=== PATIENT | male | born 1950 | race Native Hawaiian/Other Pacific Islander ===

== ENCOUNTER 2017-07-07 10:52 | Outpatient (CLI) | payer OTHER ==
[2017-07-07 11:44] LABS: PLATELET COUNT 249 K/uL (142-355)
[2017-07-07 12:30] LABS: POTASSIUM 4.2 mmol/L (3.6-5.2)
== END 2017-07-07 18:00 ==
LOC: LAB 10:52
PROVIDERS: Internal Medicine
DX: E11.9 Type 2 diabetes mellitus without complications (principal); Z12.5 Encounter for screening for malignant neoplasm of prostate
CPT/HCPCS: 36415; 80053; 80061; 81000; 82043; 82570; 83036; 84153; 84443; 85027

== ENCOUNTER 2017-07-09 15:33 | Outpatient (CLI) | payer OTHER | END 2017-07-09 22:58 | disposition home or self-care (01) | LOC: LABW 15:33 | DX: Z79.899 Other long term (current) drug therapy (principal); Z51.81 Encounter for therapeutic drug level monitoring | CPT/HCPCS: 36415; 84443 ==

== ENCOUNTER 2017-07-30 07:20 | Outpatient (CLI) | payer OTHER ==
[~2017-07-30] VITALS: Ht 177.8 cm; Wt 142.9 kg
== END 2017-07-30 19:23 | disposition home or self-care (01) ==
LOC: NM 07:20
DX: R07.89 Other chest pain (principal); I25.89 Other forms of chronic ischemic heart disease
CPT/HCPCS: 93306; A9500; J2785

== ENCOUNTER 2017-08-14 09:44 | Outpatient (CLI) | payer OTHER ==
[2017-08-14 10:11] LABS: PLATELET COUNT 304 K/uL (142-355)
== END 2017-08-14 19:15 | disposition home or self-care (01) ==
LOC: LABW 09:44
PROVIDERS: Internal Medicine
DX: N18.3 Chronic kidney disease, stage 3 (moderate) (principal); R73.09 Other abnormal glucose; R79.89 Other specified abnormal findings of blood chemistry; Z79.899 Other long term (current) drug therapy
CPT/HCPCS: 36415; 80053; 81000; 82043; 82306; 82330; 82550; 82570; 82607; 83036; 83540; 83550; 83735; 83970; 84100; 84155; 84165; 84166; 84439; 84443; 84550; 85027

== ENCOUNTER → 2017-11-27 14:35 | Outpatient (CLI) | payer OTHER | END | disposition home or self-care (01) | LOC: AMB 14:35 | DX: Z04.8 Encounter for examination and observation for other specified reasons (principal); S50.312A Abrasion of left elbow, initial encounter; W18.39XA Other fall on same level, initial encounter; Y92.511 Restaurant or cafe as the place of occurrence of the external cause ==

== ENCOUNTER 2018-04-01 08:35 | Outpatient (CLI) | payer OTHER ==
[2018-04-01 08:53] LABS: POTASSIUM 4.5 mmol/L (3.6-5.2)
== END 2018-04-01 23:23 | disposition home or self-care (01) ==
LOC: LABW 08:35
PROVIDERS: Internal Medicine Cardiovascular Disease
DX: E11.9 Type 2 diabetes mellitus without complications (principal)
CPT/HCPCS: 36415; 80048

== ENCOUNTER 2018-05-20 08:17 | Outpatient (CLI) | payer OTHER ==
[2018-05-20 08:35] LABS: PLATELET COUNT 263 K/uL (142-355)
[2018-05-20 08:51] LABS: POTASSIUM 4.6 mmol/L (3.6-5.2)
== END 2018-05-20 23:15 | disposition home or self-care (01) ==
LOC: LABW 08:17
PROVIDERS: Internal Medicine Cardiovascular Disease
DX: E11.9 Type 2 diabetes mellitus without complications (principal); E78.89 Other lipoprotein metabolism disorders; I25.10 Atherosclerotic heart disease of native coronary artery without angina pectoris
CPT/HCPCS: 36415; 80053; 80061; 82550; 83036; 84439; 84443; 85027

== ENCOUNTER 2018-09-02 09:51 | Outpatient (CLI) | payer OTHER ==
[2018-09-02 10:15] LABS: PLATELET COUNT 271 K/uL (142-355)
[2018-09-02 10:29] LABS: POTASSIUM 4.4 mmol/L (3.6-5.2)
== END 2018-09-02 19:13 | disposition home or self-care (01) ==
LOC: LABW 09:51
PROVIDERS: Internal Medicine Cardiovascular Disease
DX: E11.9 Type 2 diabetes mellitus without complications (principal); E78.89 Other lipoprotein metabolism disorders; M81.0 Age-related osteoporosis without current pathological fracture; I25.10 Atherosclerotic heart disease of native coronary artery without angina pectoris
CPT/HCPCS: 36415; 80053; 80061; 82306; 82550; 83036; 84439; 84443; 85027

== ENCOUNTER 2018-12-02 08:12 | Outpatient (CLI) | payer OTHER ==
[2018-12-02 08:34] LABS: PLATELET COUNT 262 K/uL (142-355)
[2018-12-02 08:57] LABS: POTASSIUM 4.3 mmol/L (3.6-5.2)
== END 2018-12-02 08:30 | disposition home or self-care (01) ==
LOC: LABW 08:12
PROVIDERS: Internal Medicine Cardiovascular Disease
DX: E11.9 Type 2 diabetes mellitus without complications (principal); I25.10 Atherosclerotic heart disease of native coronary artery without angina pectoris; I49.8 Other specified cardiac arrhythmias; Z79.899 Other long term (current) drug therapy
CPT/HCPCS: 36415; 80053; 80061; 82550; 83036; 83735; 84439; 84443; 85027

== ENCOUNTER 2019-03-07 08:40 | Outpatient (CLI) | payer OTHER ==
[2019-03-07 09:20] LABS: POTASSIUM 4.4 mmol/L (3.6-5.2)
[2019-03-07 09:49] LABS: PLATELET COUNT 279 K/uL (142-355)
== END 2019-03-07 21:13 | disposition home or self-care (01) ==
LOC: LABW 08:40
PROVIDERS: Internal Medicine Cardiovascular Disease
DX: E11.9 Type 2 diabetes mellitus without complications (principal); E78.89 Other lipoprotein metabolism disorders
CPT/HCPCS: 36415; 80053; 80061; 82550; 84439; 84443; 85027

== ENCOUNTER 2019-07-11 09:18 | Outpatient (CLI) | payer OTHER ==
[2019-07-11 09:35] LABS: PLATELET COUNT 249 K/uL (142-355)
[2019-07-11 09:53] LABS: POTASSIUM 4.1 mmol/L (3.6-5.2)
== END 2019-07-11 20:48 | disposition home or self-care (01) ==
LOC: LABW 09:18
PROVIDERS: Internal Medicine Cardiovascular Disease
DX: E11.9 Type 2 diabetes mellitus without complications (principal); E78.89 Other lipoprotein metabolism disorders
CPT/HCPCS: 36415; 80053; 80061; 82550; 83036; 83735; 84439; 84443; 85027

== ENCOUNTER 2019-08-04 08:27 | Outpatient (CLI) | payer OTHER ==
[2019-08-04 08:45] LABS: POTASSIUM 4.4 mmol/L (3.6-5.2)
[2019-08-04 09:16] LABS: PLATELET COUNT 247 K/uL (142-355)
== END 2019-08-04 19:10 | disposition home or self-care (01) ==
LOC: LABW 08:27
PROVIDERS: Internal Medicine Cardiovascular Disease
DX: I25.10 Atherosclerotic heart disease of native coronary artery without angina pectoris (principal); D63.8 Anemia in other chronic diseases classified elsewhere; E11.9 Type 2 diabetes mellitus without complications; I10 Essential (primary) hypertension; E78.89 Other lipoprotein metabolism disorders
CPT/HCPCS: 36415; 80048; 85027

== ENCOUNTER 2019-09-28 09:06 | Outpatient (CLI) | payer OTHER ==
[2019-09-28 09:54] LABS: PLATELET COUNT 239 K/uL (142-355)
[2019-09-29] MEDS ORDERED: CARV6.25 PO (18:03)
[2019-09-29] MEDS ORDERED: PACERONE200 MG PO (18:06)
[2019-09-29] MEDS ORDERED: ASPIRIN81 M2 PO (18:07)
[2019-09-29] MEDS ORDERED: ALTACE5 MG PO (18:08)
[2019-09-29] MEDS ORDERED: FURO40TA93 PO (18:08)
[2019-09-29] MEDS ORDERED: LIPITOR80 MG PO (18:09)
[2019-09-29] MEDS ORDERED: VASCEPA1 GM PO (18:11)
[2019-09-29] MEDS ORDERED: K-TAB20 MEQ PO (18:14)
[2019-09-29] MEDS ORDERED: CARB25TA29 PO (18:17)
== END 2019-09-28 19:15 | disposition home or self-care (01) ==
LOC: LABW 09:06
PROVIDERS: Specialist
DX: D64.89 Other specified anemias (principal)
CPT/HCPCS: 36415; 85027

== ENCOUNTER 2019-09-29 12:30 | Observation (INO) | payer OTHER ==
[2019-09-29] VITALS (13 sets, daily range): BP systolic 105–136; BP diastolic 40–86; TEMP 98.1–99
[~2019-09-29] VITALS: Ht 177.8 cm; Wt 148.1 kg
[2019-09-29 13:48] LABS: PLATELET COUNT 225 K/uL (142-355)
[2019-09-29 13:53] LABS: POTASSIUM 4.6 mmol/L (3.6-5.2)
[2019-09-29] MEDS ORDERED: CARV6.25 PO (18:03)
[2019-09-29] MEDS ORDERED: PACERONE200 MG PO (18:06)
[2019-09-29] MEDS ORDERED: ASPIRIN81 M2 PO (18:07)
[2019-09-29] MEDS ORDERED: FURO40TA93 PO (18:08)
[2019-09-29] MEDS ORDERED: ALTACE5 MG PO (18:08)
[2019-09-29] MEDS ORDERED: LIPITOR80 MG PO (18:09)
[2019-09-29] MEDS ORDERED: VASCEPA1 GM PO (18:11)
[2019-09-29] MEDS ORDERED: K-TAB20 MEQ PO (18:14)
[2019-09-29] MEDS ORDERED: CARB25TA29 PO (18:17)
[2019-09-30] VITALS (18 sets, daily range): BP systolic 11–136; BP diastolic 44–64; TEMP 98.1–99; Ht 177.8 cm; Wt 148.1 kg
[2019-09-30 06:32] LABS: PLATELET COUNT 206 K/uL (142-355)
== END 2019-10-01 00:11 | disposition home or self-care (01) ==
LOC: ED 12:30 → MED/SURG 14:41
PROVIDERS: Internal Medicine
PROC: 30233N1 Transfusion of Nonautologous Red Blood Cells into Peripheral Vein, Percutaneous Approach (ICD-10-PCS; principal; 2019-09-29)
PROC: 30233N1 Transfusion of Nonautologous Red Blood Cells into Peripheral Vein, Percutaneous Approach (ICD-10-PCS; 2019-09-30)
DX: D46.Z Other myelodysplastic syndromes (principal); E78.49 Other hyperlipidemia; I10 Essential (primary) hypertension; E11.9 Type 2 diabetes mellitus without complications; G24.3 Spasmodic torticollis; Z95.1 Presence of aortocoronary bypass graft
CPT/HCPCS: 80053; 85014; 85018; 85027; 86850; 86900; 86901; 86922; 93005; 99220; 99283; G0378; P9016

== ENCOUNTER 2019-10-05 10:44 | Outpatient (CLI) | payer OTHER ==
[~2019-10-05 10:44] MED LIST: ALTACE5 MG PO; ASPIRIN81 M2 PO; CARB25TA29 PO; CARV6.25 PO; FURO40TA93 PO; K-TAB20 MEQ PO; LIPITOR80 MG PO; PACERONE200 MG PO; VASCEPA1 GM PO
[2019-10-05 10:53] LABS: PLATELET COUNT 203 K/uL (142-355)
== END 2019-10-05 21:46 | disposition home or self-care (01) ==
LOC: LABW 10:44
PROVIDERS: Specialist
DX: D64.89 Other specified anemias (principal)
CPT/HCPCS: 36415; 85027

== ENCOUNTER 2019-10-12 10:38 | Outpatient (CLI) | payer OTHER ==
[2019-10-12 10:52] LABS: PLATELET COUNT 180 K/uL (142-355)
== END 2019-10-12 19:48 | disposition home or self-care (01) ==
LOC: LABW 10:38
PROVIDERS: Specialist
DX: D64.89 Other specified anemias (principal)
CPT/HCPCS: 36415; 85027

== ENCOUNTER 2019-10-17 10:22 | Outpatient (CLI) | payer OTHER ==
[2019-10-17 10:36] LABS: PLATELET COUNT 206 K/uL (142-355)
[2019-10-17 11:00] LABS: POTASSIUM 4.4 mmol/L (3.6-5.2)
== END 2019-10-17 21:09 | disposition home or self-care (01) ==
LOC: LABW 10:22
PROVIDERS: Internal Medicine Cardiovascular Disease
DX: E11.9 Type 2 diabetes mellitus without complications (principal); I10 Essential (primary) hypertension; D63.8 Anemia in other chronic diseases classified elsewhere; I49.8 Other specified cardiac arrhythmias
CPT/HCPCS: 36415; 80053; 80061; 82550; 83036; 84439; 84443; 85027

== ENCOUNTER 2019-10-19 10:50 | Outpatient (CLI) | payer OTHER ==
[2019-10-19 11:08] LABS: PLATELET COUNT 231 K/uL (142-355)
== END 2019-10-19 22:05 | disposition home or self-care (01) ==
LOC: LABW 10:50
PROVIDERS: Specialist
DX: D64.89 Other specified anemias (principal)
CPT/HCPCS: 36415; 85027

== ENCOUNTER 2019-10-26 11:15 | Outpatient (CLI) | payer OTHER ==
[2019-10-26 12:27] LABS: PLATELET COUNT 259 K/uL (142-355)
== END 2019-10-26 21:32 | disposition home or self-care (01) ==
LOC: LABW 11:15
PROVIDERS: Specialist
DX: D64.89 Other specified anemias (principal)
CPT/HCPCS: 36415; 85027

== ENCOUNTER 2019-10-28 09:33 | Observation (INO) | payer OTHER ==
[2019-10-28] VITALS (14 sets, daily range): BP systolic 102–127; BP diastolic 38–62; TEMP 97.1–98.7; Ht 177.8 cm; Wt 147.0 kg
[~2019-10-28] VITALS: Ht 177.8 cm; Wt 147.0 kg
[2019-10-28 10:14] LABS: PLATELET COUNT 233 K/uL (142-355)
[2019-10-28 10:22] LABS: POTASSIUM 4.3 mmol/L (3.6-5.2)
--- NOTE | 2019-10-28 12:45 | NUR ---
Pt. ADMITTED TO ROOM 1109 FOR INFUSION OF 2 UNITS POF PRBC. SKIN COLOR PALE. HGB 6.6.
--- NOTE | 2019-10-28 18:25 | NUR ---
FIRST UNIT OF BLOOD COMPLETED.
--- NOTE | 2019-10-28 23:42 | NUR ---
10/28/2019 @ 2210 SECOND UNIT OF PRBCS INFUSED WITHOUT DIFFICULTY. PATIENT TOLERATED WELL AND DENIES ANY COMPLAINTS AT THIS TIME.
== END 2019-10-28 23:36 | disposition home or self-care (01) ==
LOC: ED 09:33 → MED/SURG 12:00
PROVIDERS: ADMIT Family Medicine
PROC: 30233N1 Transfusion of Nonautologous Red Blood Cells into Peripheral Vein, Percutaneous Approach (ICD-10-PCS; principal; 2019-10-28)
DX: D46.4 Refractory anemia, unspecified (principal); I10 Essential (primary) hypertension; E11.9 Type 2 diabetes mellitus without complications; G24.3 Spasmodic torticollis; E78.49 Other hyperlipidemia; I25.10 Atherosclerotic heart disease of native coronary artery without angina pectoris; I48.91 Unspecified atrial fibrillation
CPT/HCPCS: 80053; 85027; 86850; 86900; 86901; 86922; 99220; 99283; G0378; P9016

== ENCOUNTER 2019-11-02 10:04 | Outpatient (CLI) | payer OTHER ==
[2019-11-02 12:51] LABS: PLATELET COUNT 227 K/uL (142-355)
== END 2019-11-02 20:23 | disposition home or self-care (01) ==
LOC: LAB 10:04
PROVIDERS: Specialist
DX: D64.89 Other specified anemias (principal)
CPT/HCPCS: 36415; 85027

== ENCOUNTER 2019-11-09 08:42 | Outpatient (CLI) | payer OTHER ==
[2019-11-09 10:06] LABS: PLATELET COUNT 185 K/uL (142-355)
== END 2019-11-09 19:01 | disposition home or self-care (01) ==
LOC: LABW 08:42
PROVIDERS: Specialist
DX: D64.89 Other specified anemias (principal)
CPT/HCPCS: 36415; 85027

== ENCOUNTER 2019-11-15 07:43 | Outpatient (CLI) | payer OTHER ==
[~2019-11-15] VITALS: Ht 179.1 cm; Wt 148.4 kg
[2019-11-15 08:15] VITALS: BP 119/53; TEMP 98.7
--- NOTE | 2019-11-15 17:50 | NUR ---
CHANELL FERNANDEZ RN, D/C'D PATIENT'S IV TO RIGHT HAND AND APPLIED 2X2 PRESSURE DRESSING, NO ACTIVE BLEEDING NOTED AT THIS TIME. PATIENT D/C'D FROM INFUSION CENTER AND AMBULATED FROM SAME WITHOUT DIFFICULTY AND GAIT IS STEADY. NO S/SX OF DISTRESS NOTED WITH PATIENT.
== END 2019-11-15 17:50 | disposition home or self-care (01) ==
LOC: INF 07:43
PROC: 30233N1 Transfusion of Nonautologous Red Blood Cells into Peripheral Vein, Percutaneous Approach (ICD-10-PCS; principal; 2019-11-15)
DX: D63.1 Anemia in chronic kidney disease (principal)
CPT/HCPCS: 36430; 36591; 85014; 85018; 86850; 86900; 86901; 86922; 96374; 96376; J1940; P9016

== ENCOUNTER 2019-11-16 10:24 | Outpatient (CLI) | payer OTHER ==
[2019-11-16 10:38] LABS: PLATELET COUNT 214 K/uL (142-355)
== END 2019-11-16 19:50 | disposition home or self-care (01) ==
LOC: LABW 10:24
PROVIDERS: Specialist
DX: D64.89 Other specified anemias (principal)
CPT/HCPCS: 85027

== ENCOUNTER 2019-11-23 09:10 | Outpatient (CLI) | payer OTHER ==
[2019-11-23 09:37] LABS: POTASSIUM 4.3 mmol/L (3.6-5.2)
[2019-11-23 09:47] LABS: PLATELET COUNT 245 K/uL (142-355)
== END 2019-11-23 19:43 | disposition home or self-care (01) ==
LOC: LABW 09:10
PROVIDERS: Specialist
DX: E11.9 Type 2 diabetes mellitus without complications (principal); E78.89 Other lipoprotein metabolism disorders; D63.8 Anemia in other chronic diseases classified elsewhere; I25.10 Atherosclerotic heart disease of native coronary artery without angina pectoris; D64.89 Other specified anemias
CPT/HCPCS: 36415; 80053; 80061; 82550; 83036; 84439; 84443; 85027

== ENCOUNTER 2019-11-30 09:45 | Outpatient (CLI) | payer OTHER ==
[2019-11-30 10:20] LABS: PLATELET COUNT 219 K/uL (142-355)
== END 2019-11-30 20:29 | disposition home or self-care (01) ==
LOC: LABW 09:45
PROVIDERS: Specialist
DX: D64.89 Other specified anemias (principal)
CPT/HCPCS: 36415; 85027

== ENCOUNTER 2019-12-02 07:33 | Outpatient (CLI) | payer OTHER ==
[~2019-12-02] VITALS: Ht 172.7 cm; Wt 148.3 kg
[2019-12-02 07:55] VITALS: BP 142/51; TEMP 97.8
== END 2019-12-02 16:45 | disposition home or self-care (01) ==
LOC: INF 07:33
PROC: 30233N1 Transfusion of Nonautologous Red Blood Cells into Peripheral Vein, Percutaneous Approach (ICD-10-PCS; principal; 2019-12-02)
DX: D64.9 Anemia, unspecified (principal)
CPT/HCPCS: 36430; 36591; 85014; 85018; 86850; 86900; 86901; 86922; 96374; 96375; 96376; J1940; P9016

== ENCOUNTER 2019-12-07 10:06 | Outpatient (CLI) | payer OTHER ==
[2019-12-07 10:24] LABS: PLATELET COUNT 183 K/uL (142-355)
== END 2019-12-07 21:28 | disposition home or self-care (01) ==
LOC: LABW 10:06
PROVIDERS: Specialist
DX: D64.89 Other specified anemias (principal)
CPT/HCPCS: 36415; 85027

== ENCOUNTER 2019-12-14 07:33 | Outpatient (CLI) | payer OTHER ==
[~2019-12-14] VITALS: Ht 179.1 cm; Wt 144.3 kg
[2019-12-14 07:55] VITALS: BP 123/88; TEMP 98
== END 2019-12-14 16:38 | disposition home or self-care (01) ==
LOC: INF 07:33
PROC: 30233P1 Transfusion of Nonautologous Frozen Red Cells into Peripheral Vein, Percutaneous Approach (ICD-10-PCS; principal; 2019-12-14)
DX: N18.3 Chronic kidney disease, stage 3 (moderate) (principal); D63.1 Anemia in chronic kidney disease; D53.9 Nutritional anemia, unspecified
CPT/HCPCS: 36415; 36430; 85014; 85018; 86850; 86900; 86901; 86922; P9016

== ENCOUNTER 2019-12-27 14:47 | Outpatient (CLI) | payer OTHER ==
[2019-12-27 15:19] LABS: PLATELET COUNT 210 K/uL (142-355)
[2019-12-27 16:15] LABS: POTASSIUM 4.5 mmol/L (3.6-5.2)
== END 2019-12-27 19:16 | disposition home or self-care (01) ==
LOC: LABW 14:47
PROVIDERS: Internal Medicine
DX: N18.3 Chronic kidney disease, stage 3 (moderate) (principal); D63.1 Anemia in chronic kidney disease; E53.8 Deficiency of other specified B group vitamins
CPT/HCPCS: 36415; 80053; 81000; 82306; 82330; 82570; 82607; 82728; 82746; 83540; 83550; 83735; 83970; 84100; 84155; 85027

== ENCOUNTER 2019-12-29 08:29 | Outpatient (CLI) | payer OTHER ==
[~2019-12-29] VITALS: Ht 177.8 cm; Wt 141.5 kg
[2019-12-29 09:10] VITALS: BP 110/53; TEMP 98.2
== END 2019-12-29 15:00 | disposition home or self-care (01) ==
LOC: INF 08:29
PROC: 30233P1 Transfusion of Nonautologous Frozen Red Cells into Peripheral Vein, Percutaneous Approach (ICD-10-PCS; principal; 2019-12-29)
DX: D63.1 Anemia in chronic kidney disease (principal)
CPT/HCPCS: 36430; 36591; 86850; 86900; 86901; 86922; P9016

== ENCOUNTER 2020-01-13 07:50 | Outpatient (CLI) | payer OTHER ==
[~2020-01-13] VITALS: Ht 179.1 cm; Wt 137.0 kg
== END 2020-01-13 15:50 | disposition home or self-care (01) ==
LOC: INF 07:50
PROC: 30233P1 Transfusion of Nonautologous Frozen Red Cells into Peripheral Vein, Percutaneous Approach (ICD-10-PCS; principal; 2020-01-13)
DX: N18.9 Chronic kidney disease, unspecified (principal); D63.1 Anemia in chronic kidney disease
CPT/HCPCS: 36430; 85014; 85018; 86850; 86900; 86901; 86922; P9016

== ENCOUNTER 2020-02-01 11:33 | Outpatient (CLI) | payer OTHER | END 2020-02-01 22:25 | disposition home or self-care (01) | LOC: LABW 11:33 | DX: D50.8 Other iron deficiency anemias (principal) | CPT/HCPCS: 36415; 85014; 85018 ==

== ENCOUNTER 2020-02-03 07:47 | Outpatient (CLI) | payer OTHER ==
[~2020-02-03] VITALS: Ht 177.8 cm; Wt 136.1 kg
[2020-02-03 07:55] VITALS: BP 127/44; TEMP 98.6
== END 2020-02-03 15:55 | disposition home or self-care (01) ==
LOC: INF 07:47
PROC: 30233P1 Transfusion of Nonautologous Frozen Red Cells into Peripheral Vein, Percutaneous Approach (ICD-10-PCS; principal; 2020-02-03)
DX: D64.9 Anemia, unspecified (principal)
CPT/HCPCS: 36415; 36430; 36591; 86850; 86900; 86901; 86922; P9016

== ENCOUNTER 2020-02-22 11:26 | Outpatient (CLI) | payer OTHER ==
[2020-02-22 12:11] LABS: POTASSIUM 4.3 mmol/L (3.6-5.2)
[2020-02-22 12:17] LABS: PLATELET COUNT 219 K/uL (142-355)
== END 2020-02-22 21:53 | disposition home or self-care (01) ==
LOC: LAB 11:26
PROVIDERS: Internal Medicine
DX: I25.10 Atherosclerotic heart disease of native coronary artery without angina pectoris (principal); D64.9 Anemia, unspecified; E53.8 Deficiency of other specified B group vitamins; E11.51 Type 2 diabetes mellitus with diabetic peripheral angiopathy without gangrene
CPT/HCPCS: 80053; 80061; 81000; 82043; 82570; 82607; 82746; 83036; 83540; 83550; 84439; 84443; 85027

== ENCOUNTER 2020-02-24 07:56 | Outpatient (CLI) | payer OTHER ==
[~2020-02-24] VITALS: Ht 177.8 cm; Wt 136.1 kg
[2020-02-24 08:05] VITALS: BP 116/40; TEMP 98.7
== END 2020-02-24 16:30 | disposition home or self-care (01) ==
LOC: INF 07:56
PROC: 30233P1 Transfusion of Nonautologous Frozen Red Cells into Peripheral Vein, Percutaneous Approach (ICD-10-PCS; principal; 2020-02-24)
DX: D64.9 Anemia, unspecified (principal)
CPT/HCPCS: 36430; 36591; 86850; 86900; 86901; 86922; P9016

== ENCOUNTER 2020-02-25 09:11 | Outpatient (CLI) | payer OTHER ==
[2020-02-25 10:18] LABS: PLATELET COUNT 177 K/uL (142-355)
== END 2020-02-25 19:15 | disposition home or self-care (01) ==
LOC: LABW 09:11
PROVIDERS: Internal Medicine
DX: D64.89 Other specified anemias (principal)
CPT/HCPCS: 36415; 85027

== ENCOUNTER 2020-03-05 07:57 | Outpatient (CLI) | payer OTHER ==
[~2020-03-05] VITALS: Ht 177.8 cm; Wt 136.1 kg
[2020-03-05 08:10] VITALS: BP 130/46; TEMP 98.6
== END 2020-03-05 23:09 | disposition home or self-care (01) ==
LOC: INF 07:57
PROVIDERS: ATTEND Internal Medicine
PROC: 30233P1 Transfusion of Nonautologous Frozen Red Cells into Peripheral Vein, Percutaneous Approach (ICD-10-PCS; principal; 2020-03-05)
DX: D64.9 Anemia, unspecified (principal)
CPT/HCPCS: 36430; 36591; 85014; 85018; 86850; 86900; 86901; 86922; P9016

== ENCOUNTER 2020-03-06 08:14 | Outpatient (CLI) | payer OTHER | END 2020-03-06 22:31 | disposition home or self-care (01) | LOC: LABW 08:14 | PROVIDERS: ATTEND Internal Medicine | DX: D64.89 Other specified anemias (principal) | CPT/HCPCS: 36415; 85014; 85018 ==

== ENCOUNTER 2020-03-19 09:10 | Outpatient (CLI) | payer OTHER ==
[2020-03-19 09:38] LABS: PLATELET COUNT 269 K/uL (142-355)
[2020-03-19 10:07] LABS: POTASSIUM 4.5 mmol/L (3.6-5.2)
== END 2020-03-19 22:07 | disposition home or self-care (01) ==
LOC: LABW 09:10
PROVIDERS: ATTEND Internal Medicine
DX: N18.30 Chronic kidney disease, stage 3 unspecified (principal); D63.1 Anemia in chronic kidney disease; E53.8 Deficiency of other specified B group vitamins
CPT/HCPCS: 36415; 80053; 81000; 82306; 82330; 82570; 82607; 82728; 82746; 83540; 83550; 83735; 83970; 84100; 84155; 85027

== ENCOUNTER 2020-03-27 08:03 | Outpatient (CLI) | payer OTHER ==
[2020-03-27 08:50] LABS: PLATELET COUNT 215 K/uL (142-355)
== END 2020-03-27 19:45 | disposition home or self-care (01) ==
LOC: LABW 08:03
PROVIDERS: ATTEND Internal Medicine
DX: D64.89 Other specified anemias (principal)
CPT/HCPCS: 36415; 85027

== ENCOUNTER 2020-04-02 10:04 | Outpatient (CLI) | payer OTHER ==
[2020-04-02 10:32] LABS: PLATELET COUNT 229 K/uL (142-355)
== END 2020-04-02 21:27 | disposition home or self-care (01) ==
LOC: LABW 10:04
PROVIDERS: ATTEND Internal Medicine
DX: D64.89 Other specified anemias (principal)
CPT/HCPCS: 36415; 85027; 85044

== ENCOUNTER 2020-04-04 07:40 | Outpatient (CLI) | payer OTHER ==
[~2020-04-04] VITALS: Ht 177.8 cm; Wt 136.1 kg
[2020-04-04 08:00] VITALS: BP 125/57; TEMP 99
== END 2020-04-04 16:08 | disposition home or self-care (01) ==
LOC: INF 07:40
PROVIDERS: ATTEND Internal Medicine
PROC: 30233P1 Transfusion of Nonautologous Frozen Red Cells into Peripheral Vein, Percutaneous Approach (ICD-10-PCS; principal; 2020-04-04)
DX: D64.89 Other specified anemias (principal)
CPT/HCPCS: 36430; 36591; 86850; 86900; 86901; 86922; P9016

== ENCOUNTER 2020-04-05 09:13 | Outpatient (CLI) | payer OTHER ==
[2020-04-05 12:46] LABS: PLATELET COUNT 219 K/uL (142-355)
== END 2020-04-05 19:22 | disposition home or self-care (01) ==
LOC: LABW 09:13
PROVIDERS: ATTEND Internal Medicine
DX: D64.89 Other specified anemias (principal)
CPT/HCPCS: 36415; 85027

== ENCOUNTER 2020-04-16 07:58 | Outpatient (CLI) | payer OTHER ==
[2020-04-16 08:17] LABS: PLATELET COUNT 217 K/uL (142-355)
== END 2020-04-16 21:35 | disposition home or self-care (01) ==
LOC: LABW 07:58
PROVIDERS: ATTEND Internal Medicine
DX: D64.89 Other specified anemias (principal)
CPT/HCPCS: 36415; 85027; 85044

== ENCOUNTER 2020-04-19 07:55 | Outpatient (CLI) | payer OTHER ==
[~2020-04-19] VITALS: Ht 177.8 cm; Wt 136.1 kg
[2020-04-19 08:07] VITALS: BP 135/46; TEMP 98.5
[2020-04-20 09:06] LABS: PLATELET COUNT 219 K/uL (142-355)
== END 2020-04-19 18:56 | disposition home or self-care (01) ==
LOC: INF 07:55
PROVIDERS: ATTEND Internal Medicine
PROC: 30233P1 Transfusion of Nonautologous Frozen Red Cells into Peripheral Vein, Percutaneous Approach (ICD-10-PCS; principal; 2020-04-19)
DX: D64.9 Anemia, unspecified (principal)
CPT/HCPCS: 36430; 36591; 85027; 86850; 86900; 86901; 86922; P9016

== ENCOUNTER 2020-04-30 08:13 | Outpatient (CLI) | payer OTHER ==
[2020-04-30 08:34] LABS: PLATELET COUNT 203 K/uL (142-355)
== END 2020-04-30 20:25 | disposition home or self-care (01) ==
LOC: LABW 08:13
PROVIDERS: ATTEND Internal Medicine
DX: D64.89 Other specified anemias (principal)
CPT/HCPCS: 36415; 85027; 85044

== ENCOUNTER 2020-05-01 07:28 | Outpatient (CLI) | payer OTHER ==
[~2020-05-01] VITALS: Ht 177.8 cm; Wt 136.1 kg
[2020-05-01 07:55] VITALS: BP 109/38; TEMP 97.8
== END 2020-05-01 21:36 | disposition home or self-care (01) ==
LOC: INF 07:28
PROVIDERS: ATTEND Internal Medicine
PROC: 30233N1 Transfusion of Nonautologous Red Blood Cells into Peripheral Vein, Percutaneous Approach (ICD-10-PCS; principal; 2020-05-01)
DX: D64.9 Anemia, unspecified (principal)
CPT/HCPCS: 36430; 36591; 85014; 85018; 86850; 86900; 86901; 86922; P9016

== ENCOUNTER 2020-05-02 08:10 | Outpatient (CLI) | payer OTHER ==
[2020-05-02 08:34] LABS: PLATELET COUNT 196 K/uL (142-355)
== END 2020-05-02 19:30 | disposition home or self-care (01) ==
LOC: LABW 08:10
PROVIDERS: ATTEND Internal Medicine
DX: D64.89 Other specified anemias (principal)
CPT/HCPCS: 36415; 85027

== ENCOUNTER 2020-05-14 07:53 | Outpatient (CLI) | payer OTHER ==
[2020-05-14 08:25] LABS: PLATELET COUNT 202 K/uL (142-355)
== END 2020-05-14 11:26 | disposition home or self-care (01) ==
LOC: LABW 07:53
PROVIDERS: ATTEND Internal Medicine
DX: D64.89 Other specified anemias (principal)
CPT/HCPCS: 36415; 85027; 85044

== ENCOUNTER → 2020-05-15 | Outpatient (CLI) | payer OTHER ==
[~2020-05-15] VITALS: Ht 177.8 cm; Wt 136.1 kg
[2020-05-15 07:50] VITALS: BP 124/51; TEMP 98
[2020-05-16 07:45] VITALS: BP 144/51; TEMP 98.4
[2020-05-16 17:14] LABS: PLATELET COUNT 189 K/uL (142-355)
== END ==
LOC: INF 05-14 12:00
PROVIDERS: ATTEND Internal Medicine
DX: D64.89 Other specified anemias (principal)
CPT/HCPCS: 36430; 36591; 85027; 86850; 86900; 86901; 86922; P9016

== ENCOUNTER 2020-05-28 07:55 | Outpatient (CLI) | payer OTHER ==
[2020-05-28 08:34] LABS: PLATELET COUNT 224 K/uL (142-355)
== END 2020-05-28 19:14 | disposition home or self-care (01) ==
LOC: LABW 07:55
PROVIDERS: ATTEND Internal Medicine
DX: D64.89 Other specified anemias (principal)
CPT/HCPCS: 36415; 85027; 85044

== ENCOUNTER 2020-06-05 10:19 | Outpatient (CLI) | payer OTHER ==
[2020-06-05 11:11] LABS: POTASSIUM 4.8 mmol/L (3.6-5.2)
[2020-06-05 11:15] LABS: PLATELET COUNT 232 K/uL (142-355)
== END 2020-06-05 21:05 | disposition home or self-care (01) ==
LOC: LABW 10:19
PROVIDERS: ATTEND Nurse Practitioner
DX: N18.30 Chronic kidney disease, stage 3 unspecified (principal)
CPT/HCPCS: 36415; 80053; 81000; 82306; 82330; 82570; 83735; 83970; 84100; 84155; 85027

== ENCOUNTER 2020-06-11 08:26 | Outpatient (CLI) | payer OTHER ==
[2020-06-11 09:34] LABS: PLATELET COUNT 268 K/uL (142-355)
== END 2020-06-11 19:20 | disposition home or self-care (01) ==
LOC: LABW 08:26
PROVIDERS: ATTEND Internal Medicine
DX: D64.89 Other specified anemias (principal)
CPT/HCPCS: 36415; 85027; 85044

== ENCOUNTER 2020-06-18 08:16 | Outpatient (CLI) | payer OTHER ==
[~2020-06-18] VITALS: Ht 177.8 cm; Wt 136.1 kg
== END 2020-06-18 16:39 | disposition home or self-care (01) ==
LOC: INF 08:16
PROVIDERS: ATTEND Internal Medicine
PROC: 30233N1 Transfusion of Nonautologous Red Blood Cells into Peripheral Vein, Percutaneous Approach (ICD-10-PCS; principal; 2020-06-18)
DX: D64.89 Other specified anemias (principal); D63.1 Anemia in chronic kidney disease
CPT/HCPCS: 36415; 36430; 85014; 85018; 86850; 86900; 86901; 86922; P9016

== ENCOUNTER 2020-06-21 15:27 | Outpatient (CLI) | payer OTHER ==
[2020-06-21 15:36] LABS: PLATELET COUNT 211 K/uL (142-355)
== END 2020-06-21 21:55 | disposition home or self-care (01) ==
LOC: LAB 15:27
PROVIDERS: ATTEND Internal Medicine
DX: D64.89 Other specified anemias (principal)
CPT/HCPCS: 36415; 85027

== ENCOUNTER 2020-07-02 08:17 | Outpatient (CLI) | payer OTHER ==
[2020-07-02 08:46] LABS: PLATELET COUNT 246 K/uL (142-355)
== END 2020-07-02 22:09 | disposition home or self-care (01) ==
LOC: LABW 08:17
PROVIDERS: ATTEND Internal Medicine
DX: D64.89 Other specified anemias (principal)
CPT/HCPCS: 36415; 85027; 85044

== ENCOUNTER 2020-07-03 08:28 | Outpatient (CLI) | payer OTHER ==
[~2020-07-03] VITALS: Ht 177.8 cm; Wt 136.1 kg
== END 2020-07-04 12:08 | disposition home or self-care (01) ==
LOC: INF 08:28
PROVIDERS: ATTEND Internal Medicine
PROC: 30233P1 Transfusion of Nonautologous Frozen Red Cells into Peripheral Vein, Percutaneous Approach (ICD-10-PCS; principal; 2020-07-03)
DX: D64.9 Anemia, unspecified (principal)
CPT/HCPCS: 36415; 36430; 85027; 86850; 86900; 86901; 86922; P9016

== ENCOUNTER 2020-07-04 17:21 | Outpatient (CLI) | payer OTHER ==
[2020-07-04 17:48] LABS: PLATELET COUNT 221 K/uL (142-355)
== END 2020-07-04 22:25 | disposition home or self-care (01) ==
LOC: LAB 17:21
PROVIDERS: ATTEND Internal Medicine
DX: D64.89 Other specified anemias (principal)
CPT/HCPCS: 36415; 85027

== ENCOUNTER 2020-07-16 08:10 | Outpatient (CLI) | payer OTHER ==
[2020-07-16 08:38] LABS: PLATELET COUNT 204 K/uL (142-355)
== END 2020-07-16 21:33 | disposition home or self-care (01) ==
LOC: LABW 08:10
PROVIDERS: ATTEND Internal Medicine
DX: D64.89 Other specified anemias (principal)
CPT/HCPCS: 36415; 85027; 85044

== ENCOUNTER 2020-07-24 15:39 | Outpatient (CLI) | payer OTHER | END 2020-07-24 19:29 | disposition home or self-care (01) | LOC: LAB 15:39 | PROVIDERS: ATTEND Internal Medicine | DX: N39.0 Urinary tract infection, site not specified (principal) | CPT/HCPCS: 87077; 87086; 87088; 87186 ==

== ENCOUNTER 2020-07-30 08:33 | Outpatient (CLI) | payer OTHER ==
[2020-07-30 09:05] LABS: PLATELET COUNT 229 K/uL (142-355)
== END 2020-07-30 19:08 | disposition home or self-care (01) ==
LOC: LABW 08:33
PROVIDERS: ATTEND Internal Medicine
DX: D64.89 Other specified anemias (principal)
CPT/HCPCS: 36415; 85027; 85044

== ENCOUNTER 2020-08-13 08:12 | Outpatient (CLI) | payer OTHER ==
[2020-08-13 08:38] LABS: PLATELET COUNT 329 K/uL (142-355)
== END 2020-08-13 19:23 | disposition home or self-care (01) ==
LOC: LABW 08:12
PROVIDERS: ATTEND Internal Medicine
DX: D64.89 Other specified anemias (principal)
CPT/HCPCS: 36415; 85027; 85044

== ENCOUNTER 2020-08-18 09:51 | Outpatient (CLI) | payer OTHER ==
[2020-08-18 10:08] LABS: PLATELET COUNT 215 K/uL (142-355)
== END 2020-08-18 19:29 | disposition home or self-care (01) ==
LOC: LABW 09:51
PROVIDERS: ATTEND Internal Medicine
DX: E87.71 Transfusion associated circulatory overload (principal)
CPT/HCPCS: 36415; 85027

== ENCOUNTER 2020-08-27 08:02 | Outpatient (CLI) | payer OTHER ==
[2020-08-27 08:23] LABS: PLATELET COUNT 305 K/uL (142-355)
== END 2020-08-27 21:25 | disposition home or self-care (01) ==
LOC: LABW 08:02
PROVIDERS: ATTEND Internal Medicine
DX: D64.89 Other specified anemias (principal)
CPT/HCPCS: 36415; 85027; 85044

== ENCOUNTER 2020-09-10 07:53 | Outpatient (CLI) | payer OTHER ==
[2020-09-10 08:16] LABS: PLATELET COUNT 272 K/uL (142-355)
== END 2020-09-10 20:55 | disposition home or self-care (01) ==
LOC: LABW 07:53
PROVIDERS: ATTEND Internal Medicine
DX: D64.89 Other specified anemias (principal)
CPT/HCPCS: 36415; 85027; 85044

== ENCOUNTER 2020-09-24 08:52 | Outpatient (CLI) | payer OTHER ==
[2020-09-24 09:26] LABS: PLATELET COUNT 258 K/uL (142-355)
== END 2020-09-24 21:45 | disposition home or self-care (01) ==
LOC: LABW 08:52
PROVIDERS: ATTEND Internal Medicine
DX: D64.89 Other specified anemias (principal)
CPT/HCPCS: 36415; 85027; 85044

== ENCOUNTER 2020-10-08 09:05 | Outpatient (CLI) | payer OTHER ==
[2020-10-21 06:24] LABS: PLATELET COUNT 179 K/uL (142-355)
== END 2020-10-08 12:00 | disposition home or self-care (01) ==
LOC: LABW 09:05
PROVIDERS: ATTEND Internal Medicine
DX: D64.89 Other specified anemias (principal)
CPT/HCPCS: 36415; 85027; 85044

== ENCOUNTER 2020-10-15 08:43 | Outpatient (CLI) | payer OTHER ==
[2020-10-23 13:08] LABS: PLATELET COUNT 183 K/uL (142-355)
== END 2020-10-15 17:00 | disposition home or self-care (01) ==
LOC: LABW 08:43
PROVIDERS: ATTEND Internal Medicine
DX: D64.89 Other specified anemias (principal)
CPT/HCPCS: 36415; 85027; 85044

== ENCOUNTER 2020-10-29 09:17 | Outpatient (CLI) | payer OTHER ==
[2020-10-29 09:43] LABS: PLATELET COUNT 228 K/uL (142-355)
== END 2020-10-29 21:22 | disposition home or self-care (01) ==
LOC: LABW 09:17
PROVIDERS: ATTEND Internal Medicine
DX: D64.89 Other specified anemias (principal)
CPT/HCPCS: 85027; 85044

== ENCOUNTER 2020-10-30 07:36 | Outpatient (CLI) | payer OTHER ==
[~2020-10-30] VITALS: Ht 179.1 cm; Wt 135.6 kg
[2020-10-31 18:03] LABS: PLATELET COUNT 197 K/uL (142-355)
== END 2020-10-31 19:00 | disposition home or self-care (01) ==
LOC: INF 07:36
PROVIDERS: ATTEND Internal Medicine
PROC: 30233N1 Transfusion of Nonautologous Red Blood Cells into Peripheral Vein, Percutaneous Approach (ICD-10-PCS; principal; 2020-10-30)
DX: D64.9 Anemia, unspecified (principal)
CPT/HCPCS: 36430; 36591; 85008; 85027; 86850; 86900; 86901; 86922; J1940; P9016

== ENCOUNTER 2020-11-12 07:29 | Outpatient (CLI) | payer OTHER ==
[2020-11-12 07:54] LABS: PLATELET COUNT 195 K/uL (142-355)
== END 2020-11-12 20:50 | disposition home or self-care (01) ==
LOC: LABW 07:29
PROVIDERS: ATTEND Internal Medicine
DX: D64.89 Other specified anemias (principal)
CPT/HCPCS: 36415; 85008; 85027; 85044

== ENCOUNTER 2020-11-26 09:01 | Outpatient (CLI) | payer OTHER ==
[2020-11-26 09:30] LABS: PLATELET COUNT 294 K/uL (142-355)
== END 2020-11-26 21:42 | disposition home or self-care (01) ==
LOC: LABW 09:01
PROVIDERS: ATTEND Internal Medicine
DX: D64.89 Other specified anemias (principal)
CPT/HCPCS: 36415; 85007; 85027; 85044

== ENCOUNTER 2020-11-28 07:40 | Outpatient (CLI) | payer OTHER ==
[~2020-11-28] VITALS: Ht 177.8 cm; Wt 135.6 kg
== END 2020-11-29 13:00 | disposition home or self-care (01) ==
LOC: INF 07:40
PROVIDERS: ATTEND Internal Medicine
PROC: 30233N1 Transfusion of Nonautologous Red Blood Cells into Peripheral Vein, Percutaneous Approach (ICD-10-PCS; principal; 2020-11-28)
DX: D64.9 Anemia, unspecified (principal)
CPT/HCPCS: 36430; 36591; 86850; 86900; 86901; 86922; P9016

== ENCOUNTER 2020-11-30 08:55 | Outpatient (CLI) | payer OTHER ==
[2020-11-30 09:39] LABS: PLATELET COUNT 213 K/uL (142-355)
== END 2020-11-30 23:05 | disposition home or self-care (01) ==
LOC: LABW 08:55
PROVIDERS: ATTEND Internal Medicine
DX: D64.89 Other specified anemias (principal)
CPT/HCPCS: 36415; 85027; 85044

== ENCOUNTER 2020-12-06 10:00 | Outpatient (CLI) | payer OTHER ==
[2020-12-06 11:12] LABS: POTASSIUM 4.6 mmol/L (3.6-5.2)
== END 2020-12-06 19:36 | disposition home or self-care (01) ==
LOC: LABW 10:00
PROVIDERS: ATTEND Internal Medicine
DX: N18.30 Chronic kidney disease, stage 3 unspecified (principal)
CPT/HCPCS: 36415; 80053; 81000; 82043; 82330; 82570; 83735; 83970; 84100; 84155

== ENCOUNTER 2020-12-17 09:18 | Outpatient (CLI) | payer OTHER ==
[2020-12-17 09:35] LABS: PLATELET COUNT 296 K/uL (142-355)
== END 2020-12-17 19:26 | disposition home or self-care (01) ==
LOC: LABW 09:18
PROVIDERS: ATTEND Internal Medicine
DX: D64.89 Other specified anemias (principal)
CPT/HCPCS: 36415; 85027; 85044

== ENCOUNTER 2020-12-31 09:01 | Outpatient (CLI) | payer OTHER ==
[2020-12-31 09:29] LABS: PLATELET COUNT 199 K/uL (142-355)
== END 2020-12-31 22:15 | disposition home or self-care (01) ==
LOC: LABW 09:01
PROVIDERS: ATTEND Internal Medicine
DX: D64.89 Other specified anemias (principal)
CPT/HCPCS: 36415; 85027; 85044

== ENCOUNTER 2021-01-07 08:56 | Outpatient (CLI) | payer OTHER ==
[2021-01-07 09:54] LABS: PLATELET COUNT 337 K/uL (142-355)
== END 2021-01-07 20:12 | disposition home or self-care (01) ==
LOC: LABW 08:56
PROVIDERS: ATTEND Internal Medicine
DX: D64.89 Other specified anemias (principal)
CPT/HCPCS: 36415; 85027; 85044

== ENCOUNTER 2021-01-09 07:48 | Outpatient (CLI) | payer OTHER ==
[~2021-01-09] VITALS: Ht 177.8 cm; Wt 126.6 kg
[2021-01-10 17:51] LABS: PLATELET COUNT 319 K/uL (142-355)
== END 2021-01-10 11:36 | disposition home or self-care (01) ==
LOC: INF 07:48
PROVIDERS: ATTEND Internal Medicine
PROC: 30233N1 Transfusion of Nonautologous Red Blood Cells into Peripheral Vein, Percutaneous Approach (ICD-10-PCS; principal; 2021-01-09)
DX: D64.89 Other specified anemias (principal)
CPT/HCPCS: 36415; 36430; 36591; 85014; 85018; 85027; 86850; 86900; 86901; 86922; P9016

== ENCOUNTER 2021-01-21 09:02 | Outpatient (CLI) | payer OTHER ==
[2021-01-21 09:31] LABS: PLATELET COUNT 174 K/uL (142-355)
== END 2021-01-21 21:06 | disposition home or self-care (01) ==
LOC: LABW 09:02
PROVIDERS: ATTEND Internal Medicine
DX: D64.9 Anemia, unspecified (principal)
CPT/HCPCS: 36415; 85027; 85044

== ENCOUNTER 2021-01-23 07:42 | Outpatient (CLI) | payer OTHER ==
[~2021-01-23] VITALS: Ht 177.8 cm; Wt 131.1 kg
== END 2021-01-23 19:19 | disposition home or self-care (01) ==
LOC: INF 07:42
PROVIDERS: ATTEND Internal Medicine
PROC: 30233N1 Transfusion of Nonautologous Red Blood Cells into Peripheral Vein, Percutaneous Approach (ICD-10-PCS; principal; 2021-01-23)
DX: D64.9 Anemia, unspecified (principal)
CPT/HCPCS: 36430; 85014; 85018; 86850; 86900; 86901; 86922; P9016

== ENCOUNTER 2021-01-24 09:32 | Outpatient (CLI) | payer OTHER ==
[2021-01-24 09:42] LABS: PLATELET COUNT 147 K/uL (142-355)
== END 2021-01-24 19:30 | disposition home or self-care (01) ==
LOC: LABW 09:32
PROVIDERS: ATTEND Internal Medicine
DX: D64.89 Other specified anemias (principal)
CPT/HCPCS: 85027

== ENCOUNTER 2021-02-11 09:16 | Outpatient (CLI) | payer OTHER ==
[2021-02-11 09:39] LABS: PLATELET COUNT 242 K/uL (142-355)
== END 2021-02-11 19:02 | disposition home or self-care (01) ==
LOC: LABW 09:16
PROVIDERS: ATTEND Internal Medicine
DX: D64.89 Other specified anemias (principal)
CPT/HCPCS: 36415; 85027; 85044

== ENCOUNTER 2021-02-12 10:03 | Outpatient (CLI) | payer OTHER ==
[~2021-02-12] VITALS: Ht 175.3 cm; Wt 113.4 kg
== END 2021-02-13 16:30 | disposition home or self-care (01) ==
LOC: INF 10:03
PROVIDERS: ATTEND Internal Medicine
PROC: 30233N1 Transfusion of Nonautologous Red Blood Cells into Peripheral Vein, Percutaneous Approach (ICD-10-PCS; principal; 2021-02-12)
DX: D46.9 Myelodysplastic syndrome, unspecified (principal)
CPT/HCPCS: 36430; 36591; 86850; 86900; 86901; 86922; P9016

== ENCOUNTER 2021-02-14 08:31 | Outpatient (CLI) | payer OTHER ==
[2021-02-14 08:53] LABS: PLATELET COUNT 201 K/uL (142-355)
== END 2021-02-14 20:00 | disposition home or self-care (01) ==
LOC: LABW 08:31
PROVIDERS: ATTEND Internal Medicine
DX: D64.89 Other specified anemias (principal)
CPT/HCPCS: 36415; 85027; 85044

== ENCOUNTER 2021-03-01 07:57 | Outpatient (CLI) | payer OTHER ==
[2021-03-01 09:42] LABS: POTASSIUM 4.8 mmol/L (3.6-5.2)
== END 2021-03-01 20:47 | disposition home or self-care (01) ==
LOC: INF 07:57
PROVIDERS: ATTEND Internal Medicine
PROC: 30233N1 Transfusion of Nonautologous Red Blood Cells into Peripheral Vein, Percutaneous Approach (ICD-10-PCS; principal; 2021-03-01)
DX: D46.9 Myelodysplastic syndrome, unspecified (principal); E78.5 Hyperlipidemia, unspecified; E11.9 Type 2 diabetes mellitus without complications
CPT/HCPCS: 36430; 36591; 80053; 80061; 83036; 84439; 84443; 85014; 85018; 86850; 86900; 86901; 86922; P9016

== ENCOUNTER 2021-03-02 10:13 | Outpatient (CLI) | payer OTHER ==
[2021-03-02 10:24] LABS: PLATELET COUNT 234 K/uL (142-355)
== END 2021-03-02 19:08 | disposition home or self-care (01) ==
LOC: LAB 10:13
PROVIDERS: ATTEND Internal Medicine
DX: D46.Z Other myelodysplastic syndromes (principal)
CPT/HCPCS: 36415; 85027

== ENCOUNTER 2021-03-16 14:45 | Emergency (ER) | payer OTHER ==
[~2021-03-16] VITALS: Ht 179.1 cm; Wt 131.5 kg
[2021-03-16 14:45] VITALS: TEMP 98
[2021-03-16 15:39] LABS: PLATELET COUNT 189 K/uL (142-355)
[2021-03-16 15:45] LABS: POTASSIUM 5.2 mmol/L (3.6-5.2)
[2021-03-16 15:54] LABS: PARTIAL THROMBOPLASTIN TIME 33.4 SECONDS (24.5-33.6)
[2021-03-16 19:40] VITALS: BP 111/44
== END 2021-03-16 19:40 | disposition short-term general hospital (02) ==
LOC: ED 14:45
PROVIDERS: Family Medicine
DX: K56.609 Unspecified intestinal obstruction, unspecified as to partial versus complete obstruction (principal); K80.20 Calculus of gallbladder without cholecystitis without obstruction; Z11.52 Encounter for screening for COVID-19; R60.0 Localized edema
CPT/HCPCS: 80053; 81000; 82150; 82550; 83690; 83880; 84484; 85027; 85610; 85730; 87635; 93005; 99283; U0003

== ENCOUNTER 2021-03-25 09:32 | Outpatient (CLI) | payer OTHER ==
[2021-03-25 09:56] LABS: PLATELET COUNT 228 K/uL (142-355)
[2021-03-25 10:36] LABS: POTASSIUM 4.9 mmol/L (3.6-5.2)
== END 2021-03-25 19:18 | disposition home or self-care (01) ==
LOC: LABW 09:32
PROVIDERS: ATTEND Internal Medicine Hematology & Oncology
DX: N18.30 Chronic kidney disease, stage 3 unspecified (principal); D63.1 Anemia in chronic kidney disease; D53.8 Other specified nutritional anemias; D64.89 Other specified anemias
CPT/HCPCS: 36415; 80053; 82728; 83010; 83540; 83550; 83615; 85027; 85044

== ENCOUNTER 2021-03-27 07:31 | Outpatient (CLI) | payer OTHER ==
[~2021-03-27] VITALS: Ht 177.8 cm; Wt 131.5 kg
[2021-03-27] VITALS (10 sets, daily range): BP systolic 102–107; BP diastolic 32–64; TEMP 98.2–98.6
--- NOTE | 2021-03-27 09:32 | NUR ---
@ 0800 PT AMBULATED TO INFUSION CLINIC. NO DISTRESS NOTED. PT AMBULATED WITH WALKER.
[2021-03-28] VITALS (8 sets, daily range): BP systolic 122–145; BP diastolic 60–69; TEMP 98.2–98.5
== END 2021-03-28 15:00 | disposition home or self-care (01) ==
LOC: INF 07:31
PROVIDERS: ATTEND Internal Medicine
PROC: 30233N1 Transfusion of Nonautologous Red Blood Cells into Peripheral Vein, Percutaneous Approach (ICD-10-PCS; principal; 2021-03-27)
DX: D46.9 Myelodysplastic syndrome, unspecified (principal)
CPT/HCPCS: 36430; 86850; 86900; 86901; 86922; J1940; P9016

== ENCOUNTER 2021-03-29 08:46 | Outpatient (CLI) | payer OTHER ==
[2021-03-29 08:57] LABS: PLATELET COUNT 301 K/uL (142-355)
== END 2021-03-29 18:56 | disposition home or self-care (01) ==
LOC: LABW 08:46
PROVIDERS: ATTEND Internal Medicine
DX: D64.89 Other specified anemias (principal)
CPT/HCPCS: 36415; 85027

== ENCOUNTER 2021-04-08 09:15 | Outpatient (CLI) | payer OTHER ==
[2021-04-08 09:30] LABS: PLATELET COUNT 222 K/uL (142-355)
== END 2021-04-08 18:59 | disposition home or self-care (01) ==
LOC: LABW 09:15
PROVIDERS: ATTEND Internal Medicine
DX: D64.89 Other specified anemias (principal)
CPT/HCPCS: 36415; 85027; 85044

== ENCOUNTER 2021-04-09 07:54 | Outpatient (CLI) | payer OTHER ==
[2021-04-09 08:15] VITALS: BP 132/56; TEMP 97.9
== END 2021-04-09 18:48 | disposition home or self-care (01) ==
LOC: INF 07:54
PROVIDERS: ATTEND Internal Medicine
PROC: 30233N1 Transfusion of Nonautologous Red Blood Cells into Peripheral Vein, Percutaneous Approach (ICD-10-PCS; principal; 2021-04-09)
DX: D64.9 Anemia, unspecified (principal)
CPT/HCPCS: 36430; 86850; 86900; 86901; 86922; P9016

== ENCOUNTER 2021-04-10 09:10 | Outpatient (CLI) | payer OTHER ==
[2021-04-10 09:32] LABS: PLATELET COUNT 185 K/uL (142-355)
== END 2021-04-10 19:44 | disposition home or self-care (01) ==
LOC: LABW 09:10
PROVIDERS: ATTEND Internal Medicine
DX: D64.89 Other specified anemias (principal)
CPT/HCPCS: 36415; 85027; 85044

== ENCOUNTER 2021-04-15 10:12 | Outpatient (CLI) | payer OTHER ==
[2021-04-15 11:06] LABS: POTASSIUM 4.5 mmol/L (3.6-5.2)
== END 2021-04-15 18:54 | disposition home or self-care (01) ==
LOC: LABW 10:12
PROVIDERS: ATTEND Internal Medicine
DX: N18.30 Chronic kidney disease, stage 3 unspecified (principal)
CPT/HCPCS: 36415; 80053; 81000; 82043; 82306; 82330; 82570; 83735; 83970; 84100; 84155

== ENCOUNTER 2021-04-17 09:19 | Outpatient (CLI) | payer OTHER ==
[2021-04-17 09:34] LABS: PLATELET COUNT 122 K/uL (142-355)
== END 2021-04-17 21:19 | disposition home or self-care (01) ==
LOC: LABW 09:19
PROVIDERS: ATTEND Internal Medicine Hematology & Oncology
DX: N18.30 Chronic kidney disease, stage 3 unspecified (principal); D63.1 Anemia in chronic kidney disease; D53.8 Other specified nutritional anemias; D64.89 Other specified anemias
CPT/HCPCS: 36415; 85027

== ENCOUNTER 2021-04-22 10:33 | Outpatient (CLI) | payer OTHER ==
[2021-04-22 11:06] LABS: PLATELET COUNT 165 K/uL (142-355)
[2021-04-22 11:07] LABS: POTASSIUM 4.8 mmol/L (3.6-5.2)
== END 2021-04-22 18:51 | disposition home or self-care (01) ==
LOC: LABW 10:33
PROVIDERS: ATTEND Internal Medicine Hematology & Oncology
DX: N18.30 Chronic kidney disease, stage 3 unspecified (principal); D63.1 Anemia in chronic kidney disease; D53.8 Other specified nutritional anemias; D64.89 Other specified anemias
CPT/HCPCS: 36415; 80053; 85027; 85044

== ENCOUNTER 2021-04-24 07:58 | Outpatient (CLI) | payer OTHER | END 2021-04-24 19:55 | disposition home or self-care (01) | LOC: INF 07:58 | PROVIDERS: ATTEND Internal Medicine | PROC: 30233N1 Transfusion of Nonautologous Red Blood Cells into Peripheral Vein, Percutaneous Approach (ICD-10-PCS; principal; 2021-04-24) | DX: D64.9 Anemia, unspecified (principal) | CPT/HCPCS: 36430; 85014; 85018; 86850; 86900; 86901; 86922; P9016 ==

== ENCOUNTER 2021-04-25 08:06 | Outpatient (CLI) | payer OTHER ==
[2021-04-25 08:34] LABS: PLATELET COUNT 185 K/uL (142-355)
== END 2021-04-25 19:11 | disposition home or self-care (01) ==
LOC: LABW 08:06
PROVIDERS: ATTEND Internal Medicine
DX: D64.9 Anemia, unspecified (principal)
CPT/HCPCS: 36415; 85027

== ENCOUNTER 2021-05-01 13:36 | Outpatient (CLI) | payer OTHER ==
[2021-05-01 13:51] LABS: PLATELET COUNT 229 K/uL (142-355)
[2021-05-01 14:00] LABS: POTASSIUM 5.4 mmol/L (3.6-5.2)
== END 2021-05-01 18:58 | disposition home or self-care (01) ==
LOC: LABW 13:36
PROVIDERS: ATTEND Internal Medicine Hematology & Oncology
DX: N18.9 Chronic kidney disease, unspecified (principal); D46.4 Refractory anemia, unspecified; R71.8 Other abnormality of red blood cells; D63.1 Anemia in chronic kidney disease; D64.89 Other specified anemias
CPT/HCPCS: 36415; 80053; 85027

== ENCOUNTER 2021-05-06 09:29 | Outpatient (CLI) | payer OTHER ==
[2021-05-06 09:46] LABS: PLATELET COUNT 191 K/uL (142-355)
== END 2021-05-06 20:23 | disposition home or self-care (01) ==
LOC: LABW 09:29
PROVIDERS: ATTEND Internal Medicine
DX: D64.89 Other specified anemias (principal)
CPT/HCPCS: 36415; 85027; 85044

== ENCOUNTER 2021-05-08 09:43 | Outpatient (CLI) | payer OTHER ==
[2021-05-08 09:55] LABS: PLATELET COUNT 170 K/uL (142-355)
[2021-05-08 10:01] LABS: POTASSIUM 5.5 mmol/L (3.6-5.2)
== END 2021-05-08 18:56 | disposition home or self-care (01) ==
LOC: LABW 09:43
PROVIDERS: ATTEND Internal Medicine Hematology & Oncology
DX: N18.30 Chronic kidney disease, stage 3 unspecified (principal); D63.1 Anemia in chronic kidney disease; D53.8 Other specified nutritional anemias; D64.89 Other specified anemias
CPT/HCPCS: 36415; 80053; 85027

== ENCOUNTER 2021-05-13 09:52 | Outpatient (CLI) | payer OTHER ==
[2021-05-13 10:17] LABS: PLATELET COUNT 152 K/uL (142-355)
== END 2021-05-13 20:54 | disposition home or self-care (01) ==
LOC: LABW 09:52
PROVIDERS: ATTEND Internal Medicine
DX: D64.89 Other specified anemias (principal)
CPT/HCPCS: 36415; 85027

== ENCOUNTER 2021-05-14 07:45 | Outpatient (CLI) | payer OTHER | END 2021-05-14 18:55 | disposition home or self-care (01) | LOC: INF 07:45 | PROVIDERS: ATTEND Internal Medicine | PROC: 30233N1 Transfusion of Nonautologous Red Blood Cells into Peripheral Vein, Percutaneous Approach (ICD-10-PCS; principal; 2021-05-14) | DX: D64.9 Anemia, unspecified (principal) | CPT/HCPCS: 36430; 86850; 86900; 86901; 86922; P9016 ==

== ENCOUNTER 2021-05-15 09:10 | Outpatient (CLI) | payer OTHER ==
[2021-05-15 09:48] LABS: PLATELET COUNT 136 K/uL (142-355)
[2021-05-15 09:58] LABS: POTASSIUM 4.9 mmol/L (3.6-5.2)
== END 2021-05-15 18:46 | disposition home or self-care (01) ==
LOC: LABW 09:10
PROVIDERS: ATTEND Internal Medicine Hematology & Oncology
DX: N18.9 Chronic kidney disease, unspecified (principal); D46.4 Refractory anemia, unspecified
CPT/HCPCS: 36415; 80053; 85027; 85044

== ENCOUNTER 2021-05-20 09:12 | Outpatient (CLI) | payer OTHER ==
[2021-05-20 09:27] LABS: PLATELET COUNT 178 K/uL (142-355)
[2021-05-20 09:46] LABS: POTASSIUM 4.9 mmol/L (3.6-5.2)
== END 2021-05-20 19:02 | disposition home or self-care (01) ==
LOC: LABW 09:12
PROVIDERS: ATTEND Internal Medicine Hematology & Oncology
DX: N18.30 Chronic kidney disease, stage 3 unspecified (principal); D63.1 Anemia in chronic kidney disease; D53.8 Other specified nutritional anemias; D64.89 Other specified anemias
CPT/HCPCS: 36415; 80053; 85027

== ENCOUNTER 2021-05-27 09:13 | Outpatient (CLI) | payer OTHER ==
[2021-05-27 09:29] LABS: PLATELET COUNT 274 K/uL (142-355)
== END 2021-05-27 18:56 | disposition home or self-care (01) ==
LOC: LABW 09:13
PROVIDERS: ATTEND Internal Medicine
DX: D64.89 Other specified anemias (principal); D63.1 Anemia in chronic kidney disease; N18.30 Chronic kidney disease, stage 3 unspecified; D53.8 Other specified nutritional anemias
CPT/HCPCS: 36415; 85027; 85044

== ENCOUNTER 2021-05-29 10:13 | Outpatient (CLI) | payer OTHER ==
[2021-05-29 10:37] LABS: PLATELET COUNT 245 K/uL (142-355)
[2021-05-29 10:54] LABS: POTASSIUM 5.5 mmol/L (3.6-5.2)
== END 2021-05-29 18:58 | disposition home or self-care (01) ==
LOC: LABW 10:13 → INF 10:13 → LABW 18:58
PROVIDERS: Internal Medicine; ATTEND Internal Medicine Hematology & Oncology
DX: D46.4 Refractory anemia, unspecified (principal); D63.1 Anemia in chronic kidney disease; N18.30 Chronic kidney disease, stage 3 unspecified; D53.8 Other specified nutritional anemias
CPT/HCPCS: 36415; 80053; 85027

== ENCOUNTER 2021-05-30 07:42 | Outpatient (CLI) | payer OTHER ==
[~2021-05-30] VITALS: Ht 177.8 cm; Wt 128.8 kg
[2021-05-30] VITALS (10 sets, daily range): BP systolic 14–147; BP diastolic 31–62; TEMP 98.1–98.4
== END 2021-05-30 19:09 | disposition home or self-care (01) ==
LOC: INF 07:42
PROVIDERS: ATTEND Internal Medicine
PROC: 30233N1 Transfusion of Nonautologous Red Blood Cells into Peripheral Vein, Percutaneous Approach (ICD-10-PCS; principal; 2021-05-30)
DX: D64.9 Anemia, unspecified (principal)
CPT/HCPCS: 36430; 86850; 86900; 86901; 86922; J1940; P9016

== ENCOUNTER 2021-05-31 09:25 | Outpatient (CLI) | payer OTHER ==
[2021-05-31 10:07] LABS: PLATELET COUNT 190 K/uL (142-355)
== END 2021-05-31 19:56 | disposition home or self-care (01) ==
LOC: LABW 09:25
PROVIDERS: ATTEND Internal Medicine
DX: D64.89 Other specified anemias (principal)
CPT/HCPCS: 36415; 85027

== ENCOUNTER 2021-06-05 09:23 | Outpatient (CLI) | payer OTHER ==
[2021-06-05 09:50] LABS: POTASSIUM 4.9 mmol/L (3.6-5.2)
[2021-06-05 11:44] LABS: PLATELET COUNT 164 K/uL (142-355)
== END 2021-06-05 18:58 | disposition home or self-care (01) ==
LOC: LABW 09:23
PROVIDERS: ATTEND Internal Medicine Hematology & Oncology
DX: N18.30 Chronic kidney disease, stage 3 unspecified (principal); D63.1 Anemia in chronic kidney disease; D53.8 Other specified nutritional anemias; D64.89 Other specified anemias
CPT/HCPCS: 36415; 80053; 85027

== ENCOUNTER 2021-06-10 09:14 | Outpatient (CLI) | payer OTHER ==
[2021-06-10 09:30] LABS: PLATELET COUNT 146 K/uL (142-355)
== END 2021-06-10 18:53 | disposition home or self-care (01) ==
LOC: LABW 09:14
PROVIDERS: ATTEND Internal Medicine
DX: D64.89 Other specified anemias (principal)
CPT/HCPCS: 36415; 85027; 85044

== ENCOUNTER 2021-06-11 09:09 | Outpatient (CLI) | payer OTHER ==
[~2021-06-11] VITALS: Ht 179.1 cm; Wt 131.1 kg
[2021-06-11] VITALS (14 sets, daily range): BP systolic 105–154; BP diastolic 43–55; TEMP 97.3–99
== END 2021-06-11 18:54 | disposition home or self-care (01) ==
LOC: INF 09:09
PROVIDERS: ATTEND Internal Medicine
PROC: 30233N1 Transfusion of Nonautologous Red Blood Cells into Peripheral Vein, Percutaneous Approach (ICD-10-PCS; principal; 2021-06-11)
DX: D64.9 Anemia, unspecified (principal)
CPT/HCPCS: 36430; 86850; 86900; 86901; 86922; P9016

== ENCOUNTER 2021-06-12 09:47 | Outpatient (CLI) | payer OTHER ==
[2021-06-12 10:02] LABS: PLATELET COUNT 132 K/uL (142-355)
[2021-06-12 11:04] LABS: POTASSIUM 5.4 mmol/L (3.6-5.2)
== END 2021-06-12 19:21 | disposition home or self-care (01) ==
LOC: LABW 09:47
PROVIDERS: ATTEND Internal Medicine Hematology & Oncology
DX: N18.30 Chronic kidney disease, stage 3 unspecified (principal); D63.1 Anemia in chronic kidney disease; D53.8 Other specified nutritional anemias; D64.89 Other specified anemias
CPT/HCPCS: 36415; 80053; 82607; 82728; 82746; 83540; 83550; 85027; 85044

== ENCOUNTER 2021-06-17 09:32 | Outpatient (CLI) | payer OTHER ==
[2021-06-17 09:51] LABS: PLATELET COUNT 188 K/uL (142-355)
[2021-06-17 10:13] LABS: POTASSIUM 5.1 mmol/L (3.6-5.2)
== END 2021-06-17 18:50 | disposition home or self-care (01) ==
LOC: LABW 09:32
PROVIDERS: ATTEND Internal Medicine Hematology & Oncology
DX: D46.4 Refractory anemia, unspecified (principal); D63.1 Anemia in chronic kidney disease; N18.30 Chronic kidney disease, stage 3 unspecified; D53.9 Nutritional anemia, unspecified
CPT/HCPCS: 36415; 80053; 85027; 85044

== ENCOUNTER 2021-06-24 09:25 | Outpatient (CLI) | payer OTHER ==
[2021-06-24 09:43] LABS: PLATELET COUNT 233 K/uL (142-355)
== END 2021-06-24 19:30 | disposition home or self-care (01) ==
LOC: LABW 09:25
PROVIDERS: ATTEND Internal Medicine
DX: D64.89 Other specified anemias (principal)
CPT/HCPCS: 36415; 85027; 85044

== ENCOUNTER 2021-07-03 09:15 | Outpatient (CLI) | payer OTHER ==
[2021-07-03 09:34] LABS: PLATELET COUNT 174 K/uL (142-355)
== END 2021-07-03 19:01 | disposition home or self-care (01) ==
LOC: LABW 09:15
PROVIDERS: ATTEND Internal Medicine Hematology & Oncology
DX: N18.30 Chronic kidney disease, stage 3 unspecified (principal); D63.1 Anemia in chronic kidney disease; D53.8 Other specified nutritional anemias; D64.89 Other specified anemias
CPT/HCPCS: 36415; 85027

== ENCOUNTER 2021-07-08 09:32 | Outpatient (CLI) | payer OTHER ==
[2021-07-08 09:42] LABS: PLATELET COUNT 162 K/uL (142-355)
== END 2021-07-08 19:06 | disposition home or self-care (01) ==
LOC: LABW 09:32
PROVIDERS: ATTEND Internal Medicine
DX: D64.89 Other specified anemias (principal)
CPT/HCPCS: 36415; 85027; 85044

== ENCOUNTER 2021-07-09 08:24 | Outpatient (CLI) | payer OTHER ==
[2021-07-09] VITALS (8 sets, daily range): BP systolic 101–129; BP diastolic 41–58; TEMP 97.8–99
[~2021-07-09] VITALS: Ht 179.1 cm; Wt 131.1 kg
== END 2021-07-09 18:54 | disposition home or self-care (01) ==
LOC: INF 08:24
PROVIDERS: ATTEND Internal Medicine
PROC: 30233P1 Transfusion of Nonautologous Frozen Red Cells into Peripheral Vein, Percutaneous Approach (ICD-10-PCS; principal; 2021-07-09)
DX: D64.9 Anemia, unspecified (principal)
CPT/HCPCS: 36430; 86850; 86900; 86901; 86922; P9016

== ENCOUNTER 2021-07-10 09:43 | Outpatient (CLI) | payer OTHER ==
[2021-07-10 10:23] LABS: PLATELET COUNT 171 K/uL (142-355)
== END 2021-07-10 18:52 | disposition home or self-care (01) ==
LOC: LABW 09:43
PROVIDERS: ATTEND Internal Medicine
DX: D64.89 Other specified anemias (principal)
CPT/HCPCS: 36415; 85027

== ENCOUNTER 2021-07-17 09:24 | Outpatient (CLI) | payer OTHER ==
[2021-07-17 10:44] LABS: POTASSIUM 4.6 mmol/L (3.6-5.2)
[2021-07-17 10:58] LABS: PLATELET COUNT 226 K/uL (142-355)
== END 2021-07-17 18:57 | disposition home or self-care (01) ==
LOC: LABW 09:24
PROVIDERS: ATTEND Internal Medicine Hematology & Oncology
DX: D46.4 Refractory anemia, unspecified (principal); D63.1 Anemia in chronic kidney disease; N18.30 Chronic kidney disease, stage 3 unspecified; D53.8 Other specified nutritional anemias
CPT/HCPCS: 36415; 80053; 82607; 82728; 82746; 83540; 83550; 85027

== ENCOUNTER 2021-07-22 08:17 | Outpatient (CLI) | payer OTHER ==
[2021-07-22 08:32] LABS: PLATELET COUNT 208 K/uL (142-355)
== END 2021-07-22 19:06 | disposition home or self-care (01) ==
LOC: LABW 08:17
PROVIDERS: ATTEND Internal Medicine
DX: D64.89 Other specified anemias (principal)
CPT/HCPCS: 36415; 85027; 85044

== ENCOUNTER 2021-07-23 07:59 | Outpatient (CLI) | payer OTHER ==
[~2021-07-23] VITALS: Ht 177.8 cm; Wt 130.6 kg
[2021-07-23] VITALS (8 sets, daily range): BP systolic 106–128; BP diastolic 44–59; TEMP 97.9–98.7
== END 2021-07-23 18:57 | disposition home or self-care (01) ==
LOC: INF 07:59
PROVIDERS: ATTEND Internal Medicine
PROC: 30233N1 Transfusion of Nonautologous Red Blood Cells into Peripheral Vein, Percutaneous Approach (ICD-10-PCS; principal; 2021-07-23)
DX: D64.9 Anemia, unspecified (principal); D63.8 Anemia in other chronic diseases classified elsewhere
CPT/HCPCS: 36430; 86850; 86900; 86901; 86922; P9016

== ENCOUNTER 2021-07-24 09:20 | Outpatient (CLI) | payer OTHER ==
[2021-07-24 09:58] LABS: PLATELET COUNT 185 K/uL (142-355)
== END 2021-07-24 19:09 | disposition home or self-care (01) ==
LOC: LABW 09:20
PROVIDERS: ATTEND Internal Medicine
DX: N18.9 Chronic kidney disease, unspecified (principal); D63.8 Anemia in other chronic diseases classified elsewhere
CPT/HCPCS: 36415; 85027

== ENCOUNTER 2021-08-05 09:32 | Outpatient (CLI) | payer OTHER ==
[2021-08-05 09:50] LABS: PLATELET COUNT 188 K/uL (142-355)
== END 2021-08-05 19:52 | disposition home or self-care (01) ==
LOC: LABW 09:32
PROVIDERS: ATTEND Internal Medicine
DX: D64.89 Other specified anemias (principal)
CPT/HCPCS: 36415; 85027; 85044

== ENCOUNTER 2021-08-08 08:43 | Outpatient (CLI) | payer OTHER ==
[2021-08-08 08:54] LABS: PLATELET COUNT 199 K/uL (142-355)
== END 2021-08-08 19:08 | disposition home or self-care (01) ==
LOC: LABW 08:43
PROVIDERS: ATTEND Internal Medicine
DX: D64.89 Other specified anemias (principal)
CPT/HCPCS: 36415; 85027

== ENCOUNTER 2021-08-19 09:34 | Outpatient (CLI) | payer OTHER ==
[2021-08-19 09:58] LABS: PLATELET COUNT 185 K/uL (142-355)
== END 2021-08-19 18:56 | disposition home or self-care (01) ==
LOC: LABW 09:34
PROVIDERS: ATTEND Internal Medicine
DX: D64.89 Other specified anemias (principal)
CPT/HCPCS: 36415; 85027; 85044

== ENCOUNTER 2021-08-26 09:08 | Outpatient (CLI) | payer OTHER ==
[2021-08-26 09:39] LABS: PLATELET COUNT 162 K/uL (142-355)
== END 2021-08-26 18:59 | disposition home or self-care (01) ==
LOC: LABW 09:08
PROVIDERS: ATTEND Internal Medicine
DX: D64.89 Other specified anemias (principal)
CPT/HCPCS: 36415; 85027; 85044

== ENCOUNTER 2021-08-29 09:34 | Outpatient (CLI) | payer OTHER ==
[2021-08-29 10:02] LABS: PLATELET COUNT 166 K/uL (142-355)
== END 2021-08-29 19:02 | disposition home or self-care (01) ==
LOC: LABW 09:34
PROVIDERS: ATTEND Internal Medicine
DX: D64.9 Anemia, unspecified (principal)
CPT/HCPCS: 36415; 85027

== ENCOUNTER 2021-09-09 09:29 | Outpatient (CLI) | payer OTHER ==
[2021-09-09 10:18] LABS: PLATELET COUNT 200 K/uL (142-355)
== END 2021-09-09 18:57 | disposition home or self-care (01) ==
LOC: LABW 09:29
PROVIDERS: ATTEND Internal Medicine
DX: D64.89 Other specified anemias (principal)
CPT/HCPCS: 36415; 85027

== ENCOUNTER 2021-09-23 09:28 | Outpatient (CLI) | payer OTHER ==
[2021-09-23 09:43] LABS: PLATELET COUNT 192 K/uL (142-355)
== END 2021-09-23 18:59 | disposition home or self-care (01) ==
LOC: LABW 09:28
PROVIDERS: ATTEND Internal Medicine
DX: D64.89 Other specified anemias (principal)
CPT/HCPCS: 36415; 85027; 85044

== ENCOUNTER 2021-09-24 07:44 | Outpatient (CLI) | payer OTHER ==
[~2021-09-24] VITALS: Ht 177.8 cm; Wt 130.6 kg
[2021-09-24] VITALS (7 sets, daily range): BP systolic 108–135; BP diastolic 38–62; TEMP 98.1–98.6
== END 2021-09-24 18:49 | disposition home or self-care (01) ==
LOC: INF 07:44
PROVIDERS: ATTEND Internal Medicine
PROC: 30233N1 Transfusion of Nonautologous Red Blood Cells into Peripheral Vein, Percutaneous Approach (ICD-10-PCS; principal; 2021-09-24)
DX: D64.9 Anemia, unspecified (principal)
CPT/HCPCS: 36430; 86850; 86900; 86901; 86922; P9016

== ENCOUNTER 2021-09-25 08:08 | Outpatient (CLI) | payer OTHER ==
[2021-09-25 09:35] LABS: PLATELET COUNT 197 K/uL (142-355)
== END 2021-09-25 18:48 | disposition home or self-care (01) ==
LOC: LABW 08:08
PROVIDERS: ATTEND Internal Medicine
DX: D64.89 Other specified anemias (principal)
CPT/HCPCS: 36415; 85027

== ENCOUNTER 2021-10-01 07:51 | Outpatient (CLI) | payer OTHER ==
[2021-10-01 09:03] LABS: PLATELET COUNT 174 K/uL (142-355)
== END 2021-10-01 18:55 | disposition home or self-care (01) ==
LOC: LABW 07:51
PROVIDERS: ATTEND Internal Medicine
DX: D64.89 Other specified anemias (principal)
CPT/HCPCS: 36415; 85027

== ENCOUNTER 2021-10-14 09:32 | Outpatient (CLI) | payer OTHER ==
[2021-10-14 09:49] LABS: PLATELET COUNT 214 K/uL (142-355)
== END 2021-10-14 19:48 | disposition home or self-care (01) ==
LOC: LABW 09:32
PROVIDERS: ATTEND Internal Medicine
DX: D64.89 Other specified anemias (principal)
CPT/HCPCS: 36415; 85027; 85044

== ENCOUNTER 2021-10-15 07:48 | Outpatient (CLI) | payer OTHER ==
[2021-10-15] VITALS (10 sets, daily range): BP systolic 107–141; BP diastolic 49–67; TEMP 98–98.8
[~2021-10-15] VITALS: Ht 177.8 cm; Wt 131.5 kg
--- NOTE | 2021-10-15 08:10 | NUR ---
PT AMBULATED WITH ROLLATOR TO ROOM 1128 ACCOMPANIED BY . VS OBTAINED. BREAKFAST TRAY ORDERED. ORDERS FAXED TO PHARMACY.
--- NOTE | 2021-10-15 09:04 | NUR ---
PT CONSUMED 100% OF BREAKFAST.
--- NOTE | 2021-10-15 09:31 | NUR ---
PT UP TO RESTROOM AT THIS TIME. PT VOIDED 125 ML YELLOW URINE
--- NOTE | 2021-10-15 11:06 | NUR ---
22G PIV TO LW X MULTIPLE ATTEMPTS BY 3 DIFFERENT NURSES TO OBTAIN. SITE FLUSHED WITH 10ML NS.
--- NOTE | 2021-10-15 11:30 | NUR ---
FIRST UNIT OF PRBC INFUSING AT THIS TIME.VERIFIED PER POLICY AND RATE OF 50ML/HR
--- NOTE | 2021-10-15 11:45 | NUR ---
PT TOLERATING BLOOD WITH NO ADVERSE REACTIONS OBSERVED PT DENIES ANY COMPLAINTS.
--- NOTE | 2021-10-15 12:30 | NUR ---
PT CONSUMED 100% OF HIS LUNCH AND HAS VOIDED 250 ML YELLOW URINE. VS OBTAINED. PT WATCHING [employer] DENIES ANY COMPLAINTS BLOOD INFUSING WITH NO ADVERESE REACTIONS OBSERVED AT THIS TIME.
--- NOTE | 2021-10-15 13:20 | NUR ---
NOTIFIED DR SANCHEZ OFFICE THAT PT IS A HARD STICK. I INQUIRED ABOUT CONSIDERING PAC FOR THIS PT. DUE TO DIFFICULTY TO OBTAIN PIV
--- NOTE | 2021-10-15 13:26 | NUR ---
FIRST UNIT OF PRBC COMPLETED AT THIS TIME. VS OBTAINED NO ADVERSE REACTIONS OBSERVED. PT DENIES ANY COMPLAINTS.
--- NOTE | 2021-10-15 13:39 | NUR ---
SECOND UNIT OF PRBC VERIFIED PER POLICY AND INFUSING AT 50ML/HR. WILL MONITOR PT
--- NOTE | 2021-10-15 13:56 | NUR ---
PT TOLERATING PRBC WITH NO COMPLAINTS. NO ADVERSE REACTIONS OBSERVED AT THIS TIME. PT CONTINUES TO WATCH TV.
--- NOTE | 2021-10-15 14:55 | NUR ---
PT SITTING IN RECLINER WITH PRBC INFUSING AND NO COMPLICATIONS OR ADVERSE REACTIONS SUSPECTED.
--- NOTE | 2021-10-15 16:00 | NUR ---
PT VOIDED 100 ML YELLOW URINE IN URINAL. PT WATCHING TV AND BROWSING INTERNET ON HIS PHONE. NO COMPLAINTS VOICED. NO ADVERSE REACTIONS SUSPECTED.
--- NOTE | 2021-10-15 16:25 | NUR ---
SECOND UNIT OF PRBC COMPLETED AT THIS TIME WITH NO ADVERSE REACTION SUSPECTED. 22GPIV FLUSHED WITH 10ML NS. IV D/C INTACT SITE CARE PROVIDED. PT CALED HIS TO PICK HIM UP FROM THIS FACILITY
--- NOTE | 2021-10-15 16:48 | NUR ---
PT EDUCATED TO RETURN TO LAB TOMORROW FOR POST TRANSFUSION CBC. PT EDUCATED ON S/S TO MONITOR AT HOME FOR ADVERSE REACTIONS. AND REPRT TO ER IF SYMPTOMS PRESENT. PT VERBALIZED UNDERSTANDING. PT AMBULATED OUT OF FACILITY USING ROLLATOR TO POV ACCOMPANIED BY HIS IN NO DISTRESS
== END 2021-10-15 20:34 | disposition home or self-care (01) ==
LOC: INF 07:48
PROVIDERS: ATTEND Internal Medicine
PROC: 30233N1 Transfusion of Nonautologous Red Blood Cells into Peripheral Vein, Percutaneous Approach (ICD-10-PCS; principal; 2021-10-15)
DX: D64.9 Anemia, unspecified (principal)
CPT/HCPCS: 36430; 86850; 86900; 86901; 86922; P9016

== ENCOUNTER 2021-10-16 08:59 | Outpatient (CLI) | payer OTHER ==
[2021-10-16 09:14] LABS: PLATELET COUNT 187 K/uL (142-355)
== END 2021-10-16 18:54 | disposition home or self-care (01) ==
LOC: LABW 08:59
PROVIDERS: ATTEND Internal Medicine
DX: D64.89 Other specified anemias (principal)
CPT/HCPCS: 36415; 85027

== ENCOUNTER 2021-10-28 09:10 | Outpatient (CLI) | payer OTHER ==
[2021-10-28 09:24] LABS: PLATELET COUNT 182 K/uL (142-355)
== END 2021-10-28 18:59 | disposition home or self-care (01) ==
LOC: LABW 09:10
PROVIDERS: ATTEND Internal Medicine
DX: D64.9 Anemia, unspecified (principal)
CPT/HCPCS: 36415; 85027; 85044

== ENCOUNTER 2021-10-29 07:39 | Outpatient (CLI) | payer OTHER ==
[2021-10-29] VITALS (8 sets, daily range): BP systolic 104–119; BP diastolic 36–54; TEMP 97.5–98.7
[~2021-10-29] VITALS: Ht 177.8 cm; Wt 131.5 kg
--- NOTE | 2021-10-29 16:16 | NUR ---
0809 PT AMBULATED TO ROOM 1128 WITH ROLLATOR ACCOMPANIED BY HIS . VS OBTAINED 0820 LAB WITH PT PLACING BLOOD BAND 0827 LAB NOTIFIED ME THAT BLOOD IS READY 0830 PT CONSUMED 100% OF BREAKFAST 0840 22G PIV TO RFA X1 ATTEMPT 0854 FIRST UNIT PRBC INFUSING AT THIS TIME PER PROTOCOL 0910 PT TOLERATING PRBC WITH NO ADVERSE REACTION SUSPECTED. PT DENIES ANY COMPLAINTS AT THIS TIME. 1055 FIRST UNIT PRBC COMPLETED AT THIS TIME. 1118 PT REFUSED LASIX PO SECOND UNIT PRBC STARTED INFUSING AT THIS TIME. PER PROTOCOL 1130 PT TOLERATING PRBC INFUSION WITH NO COMPLAINTS OR ADVERSE REACTIONS. 1216 PT CONSUMED 100% OF LUNCH 1358 SECOND UNIT PRBC COMPLETED AT THIS TIME. BLOOD BAGS RETURNED TO LAB IV D/C INTACT. SITE CARE PROVIDED 1430 PT EDUCATED TO RETURN TO LAB FOR H&H TOMORROW AM. PT VERBALIZED UNDERSTANDING. PT AMBULATED WITH ROLLATOR TO POV IN NO DISTRESS.
== END 2021-10-29 18:49 | disposition home or self-care (01) ==
LOC: INF 07:39
PROVIDERS: ATTEND Internal Medicine
DX: D53.9 Nutritional anemia, unspecified (principal); D63.8 Anemia in other chronic diseases classified elsewhere
CPT/HCPCS: 36430; 86850; 86900; 86901; 86922; P9016

== ENCOUNTER 2021-10-30 08:50 | Outpatient (CLI) | payer OTHER ==
[2021-10-30 09:15] LABS: PLATELET COUNT 171 K/uL (142-355)
[2021-10-30 09:47] LABS: POTASSIUM 5.1 mmol/L (3.6-5.2)
== END 2021-10-30 18:52 | disposition home or self-care (01) ==
LOC: LABW 08:50
PROVIDERS: ATTEND Internal Medicine
DX: L03.115 Cellulitis of right lower limb (principal); E11.9 Type 2 diabetes mellitus without complications; D64.89 Other specified anemias
CPT/HCPCS: 36415; 80053; 80061; 81002; 83036; 84439; 84443; 85027

== ENCOUNTER 2021-11-11 08:40 | Outpatient (CLI) | payer OTHER ==
[2021-11-11 08:58] LABS: PLATELET COUNT 253 K/uL (142-355)
== END 2021-11-11 19:08 | disposition home or self-care (01) ==
LOC: LABW 08:40
PROVIDERS: ATTEND Internal Medicine
DX: D64.9 Anemia, unspecified (principal)
CPT/HCPCS: 36415; 85027; 85044

== ENCOUNTER 2021-11-21 08:46 | Outpatient (CLI) | payer OTHER ==
[2021-11-21 09:08] LABS: PLATELET COUNT 209 K/uL (142-355)
== END 2021-11-21 20:53 | disposition home or self-care (01) ==
LOC: LABW 08:46
PROVIDERS: ATTEND Internal Medicine
DX: D64.89 Other specified anemias (principal)
CPT/HCPCS: 36415; 85027

== ENCOUNTER 2021-11-22 07:36 | Outpatient (CLI) | payer OTHER ==
[~2021-11-22] VITALS: Ht 177.8 cm; Wt 131.1 kg
[2021-11-22 11:07] VITALS: BP 127/44; TEMP 98
[2021-11-22 11:43] VITALS: BP 130/55; TEMP 98.2
[2021-11-22 12:51] VITALS: BP 102/44; TEMP 98.6
[2021-11-22 13:35] VITALS: BP 121/40; TEMP 98.6
[2021-11-22 14:35] VITALS: BP 113/45; TEMP 97.9
[2021-11-22 15:45] VITALS: BP 119/52; TEMP 98.2
[2021-11-23 12:50] VITALS: BP 133/48; TEMP 98.2
[2021-11-23 13:10] VITALS: BP 115/46; TEMP 98.4
[2021-11-23 14:10] VITALS: BP 120/21; TEMP 98.1
[2021-11-23 15:29] VITALS: BP 118/48; TEMP 98.3
== END 2021-11-23 15:16 | disposition home or self-care (01) ==
LOC: INF 07:36
PROVIDERS: ATTEND Internal Medicine
PROC: 30233N1 Transfusion of Nonautologous Red Blood Cells into Peripheral Vein, Percutaneous Approach (ICD-10-PCS; principal; 2021-11-22)
DX: D53.9 Nutritional anemia, unspecified (principal); D63.8 Anemia in other chronic diseases classified elsewhere
CPT/HCPCS: 36430; 86850; 86900; 86901; 86922; P9016

== ENCOUNTER 2021-11-24 08:40 | Outpatient (CLI) | payer OTHER ==
[2021-11-24 08:56] LABS: PLATELET COUNT 161 K/uL (142-355)
== END 2021-11-24 18:50 | disposition home or self-care (01) ==
LOC: LABW 08:40
PROVIDERS: ATTEND Internal Medicine
DX: D64.89 Other specified anemias (principal)
CPT/HCPCS: 36415; 85027

== ENCOUNTER 2021-12-09 08:49 | Outpatient (CLI) | payer OTHER ==
[2021-12-09 09:14] LABS: PLATELET COUNT 219 K/uL (142-355)
== END 2021-12-09 18:48 | disposition home or self-care (01) ==
LOC: LABW 08:49
PROVIDERS: ATTEND Internal Medicine
DX: D64.89 Other specified anemias (principal)
CPT/HCPCS: 36415; 85027; 85044

== ENCOUNTER 2021-12-11 08:06 | Outpatient (CLI) | payer OTHER ==
[2021-12-11 09:13] LABS: PLATELET COUNT 235 K/uL (142-355)
== END 2021-12-11 19:22 | disposition home or self-care (01) ==
LOC: LABW 08:06
PROVIDERS: ATTEND Internal Medicine
DX: D64.89 Other specified anemias (principal)
CPT/HCPCS: 36415; 85027; 85044

== ENCOUNTER 2021-12-24 08:31 | Outpatient (CLI) | payer OTHER ==
[2021-12-24 08:46] LABS: PLATELET COUNT 162 K/uL (142-355)
== END 2021-12-24 18:46 | disposition home or self-care (01) ==
LOC: LABW 08:31
PROVIDERS: ATTEND Internal Medicine
DX: D64.89 Other specified anemias (principal)
CPT/HCPCS: 36415; 85027; 85044

== ENCOUNTER 2021-12-25 08:01 | Outpatient (CLI) | payer OTHER ==
[~2021-12-25] VITALS: Ht 177.8 cm; Wt 131.5 kg
[2021-12-25] VITALS (8 sets, daily range): BP systolic 122–131; BP diastolic 44–56; TEMP 98.1–98.6
== END 2021-12-25 19:03 | disposition home or self-care (01) ==
LOC: INF 08:01
PROVIDERS: ATTEND Internal Medicine
PROC: 30233P1 Transfusion of Nonautologous Frozen Red Cells into Peripheral Vein, Percutaneous Approach (ICD-10-PCS; principal; 2021-12-25)
DX: D64.9 Anemia, unspecified (principal)
CPT/HCPCS: 36430; 86850; 86900; 86901; 86922; P9016

== ENCOUNTER 2021-12-26 08:52 | Outpatient (CLI) | payer OTHER ==
[2021-12-26 17:57] LABS: PLATELET COUNT 142 K/uL (142-355)
== END 2021-12-26 20:55 | disposition home or self-care (01) ==
LOC: LABW 08:52
PROVIDERS: ATTEND Internal Medicine
DX: D64.89 Other specified anemias (principal)
CPT/HCPCS: 36415; 85027; 85044

== ENCOUNTER 2021-12-31 15:57 | Outpatient (CLI) | payer OTHER | END 2021-12-31 19:41 | disposition home or self-care (01) | LOC: US 15:57 | PROVIDERS: ATTEND Internal Medicine | DX: M79.89 Other specified soft tissue disorders (principal) ==

== ENCOUNTER 2022-01-06 09:11 | Outpatient (CLI) | payer OTHER ==
[2022-01-06 09:31] LABS: PLATELET COUNT 196 K/uL (142-355)
== END 2022-01-06 20:19 | disposition home or self-care (01) ==
LOC: LABW 09:11
PROVIDERS: ATTEND Internal Medicine
DX: D64.89 Other specified anemias (principal)
CPT/HCPCS: 36415; 85027; 85044

== ENCOUNTER 2022-01-10 07:36 | Outpatient (CLI) | payer OTHER ==
[~2022-01-10] VITALS: Ht 177.8 cm; Wt 106.6 kg
[2022-01-10] VITALS (7 sets, daily range): BP systolic 102–136; BP diastolic 48–74; TEMP 98–98.3
== END 2022-01-10 21:27 | disposition home or self-care (01) ==
LOC: INF 07:36
PROVIDERS: ATTEND Internal Medicine
PROC: 30233P1 Transfusion of Nonautologous Frozen Red Cells into Peripheral Vein, Percutaneous Approach (ICD-10-PCS; principal; 2022-01-10)
DX: D64.9 Anemia, unspecified (principal)
CPT/HCPCS: 36430; 86850; 86900; 86901; 86922; P9016

== ENCOUNTER 2022-01-11 09:19 | Outpatient (CLI) | payer OTHER ==
[2022-01-11 09:35] LABS: PLATELET COUNT 216 K/uL (142-355)
== END 2022-01-11 19:21 | disposition home or self-care (01) ==
LOC: LABW 09:19
PROVIDERS: ATTEND Internal Medicine
DX: D64.89 Other specified anemias (principal)
CPT/HCPCS: 36415; 85027

== ENCOUNTER 2022-01-20 09:07 | Outpatient (CLI) | payer OTHER ==
[2022-01-20 09:34] LABS: PLATELET COUNT 223 K/uL (142-355)
== END 2022-01-20 20:39 | disposition home or self-care (01) ==
LOC: LABW 09:07
PROVIDERS: ATTEND Internal Medicine
DX: D64.9 Anemia, unspecified (principal)
CPT/HCPCS: 36415; 85027; 85044

== ENCOUNTER 2022-01-21 08:09 | Outpatient (CLI) | payer OTHER ==
[~2022-01-21] VITALS: Ht 177.8 cm; Wt 104.3 kg
[2022-01-21] VITALS (7 sets, daily range): BP systolic 113–136; BP diastolic 42–55; TEMP 97.7–98.2
== END 2022-01-21 14:00 | disposition home or self-care (01) ==
LOC: INF 08:09
PROVIDERS: ATTEND Internal Medicine
PROC: 30233P1 Transfusion of Nonautologous Frozen Red Cells into Peripheral Vein, Percutaneous Approach (ICD-10-PCS; principal; 2022-01-21)
DX: D64.9 Anemia, unspecified (principal)
CPT/HCPCS: 36430; 86850; 86900; 86901; 86922; P9016

== ENCOUNTER 2022-01-22 08:46 | Outpatient (CLI) | payer OTHER ==
[2022-01-22 09:59] LABS: PLATELET COUNT 200 K/uL (142-355)
== END 2022-01-22 19:09 | disposition home or self-care (01) ==
LOC: LABW 08:46
PROVIDERS: ATTEND Internal Medicine
DX: D64.9 Anemia, unspecified (principal)
CPT/HCPCS: 36415; 85027; 85044

== ENCOUNTER 2022-01-27 16:14 | Outpatient (CLI) | payer OTHER | END 2022-01-27 19:08 | disposition home or self-care (01) | LOC: LAB 16:14 | PROVIDERS: ATTEND Internal Medicine | DX: R19.7 Diarrhea, unspecified (principal) | CPT/HCPCS: 82272; 83630; 87015; 87045; 87206; 87324; 87328; 87329; 87449; 87507; 87899 ==

== ENCOUNTER 2022-02-03 09:17 | Outpatient (CLI) | payer OTHER ==
[2022-02-03 09:53] LABS: PLATELET COUNT 332 K/uL (142-355)
== END 2022-02-03 20:42 | disposition home or self-care (01) ==
LOC: LABW 09:17
PROVIDERS: ATTEND Internal Medicine
DX: D64.89 Other specified anemias (principal)
CPT/HCPCS: 36415; 85027; 85044

== ENCOUNTER 2022-02-05 07:40 | Outpatient (CLI) | payer OTHER ==
[2022-02-05] VITALS (9 sets, daily range): BP systolic 117–138; BP diastolic 40–66; TEMP 97.7–98.6
[~2022-02-05] VITALS: Ht 177.8 cm; Wt 131.5 kg
== END 2022-02-05 19:25 | disposition home or self-care (01) ==
LOC: INF 07:40
PROVIDERS: ATTEND Internal Medicine
PROC: 30233N1 Transfusion of Nonautologous Red Blood Cells into Peripheral Vein, Percutaneous Approach (ICD-10-PCS; principal; 2022-02-05)
DX: D64.9 Anemia, unspecified (principal)
CPT/HCPCS: 36430; 86850; 86900; 86901; 86922; P9016

== ENCOUNTER 2022-02-06 09:40 | Outpatient (CLI) | payer OTHER ==
[2022-02-06 09:50] LABS: PLATELET COUNT 327 K/uL (142-355)
== END 2022-02-06 19:13 | disposition home or self-care (01) ==
LOC: LABW 09:40
PROVIDERS: ATTEND Internal Medicine
DX: D64.89 Other specified anemias (principal)
CPT/HCPCS: 36415; 85027

== ENCOUNTER 2022-02-17 14:14 | Outpatient (CLI) | payer OTHER ==
[2022-02-17 14:58] LABS: PLATELET COUNT 185 K/uL (142-355)
== END 2022-02-17 19:36 | disposition home or self-care (01) ==
LOC: LABW 14:14
PROVIDERS: ATTEND Internal Medicine
DX: D64.89 Other specified anemias (principal)
CPT/HCPCS: 36415; 85027

== ENCOUNTER 2022-02-19 07:41 | Outpatient (CLI) | payer OTHER ==
[~2022-02-19] VITALS: Ht 182.9 cm; Wt 107.5 kg
[2022-02-19 08:22] VITALS: BP 134/60; TEMP 98.1
== END 2022-02-19 20:39 | disposition home or self-care (01) ==
LOC: INF 07:41
PROVIDERS: ATTEND Internal Medicine
PROC: 30233P1 Transfusion of Nonautologous Frozen Red Cells into Peripheral Vein, Percutaneous Approach (ICD-10-PCS; principal; 2022-02-19)
DX: D64.9 Anemia, unspecified (principal)
CPT/HCPCS: 36415; 36430; 86850; 86900; 86901; 86922; P9016

== ENCOUNTER 2022-02-20 09:06 | Outpatient (CLI) | payer OTHER ==
[2022-02-20 09:37] LABS: PLATELET COUNT 160 K/uL (142-355)
== END 2022-02-20 19:04 | disposition home or self-care (01) ==
LOC: LABW 09:06
PROVIDERS: ATTEND Internal Medicine
DX: D64.89 Other specified anemias (principal)
CPT/HCPCS: 36415; 85027

== ENCOUNTER 2022-03-03 09:35 | Outpatient (CLI) | payer OTHER ==
[2022-03-03 09:48] LABS: PLATELET COUNT 183 K/uL (142-355)
== END 2022-03-03 19:59 | disposition home or self-care (01) ==
LOC: LABW 09:35
PROVIDERS: ATTEND Internal Medicine
DX: D64.89 Other specified anemias (principal)
CPT/HCPCS: 36415; 85027

== ENCOUNTER 2022-03-05 07:44 | Outpatient (CLI) | payer OTHER ==
[2022-03-05] VITALS (7 sets, daily range): BP systolic 120–150; BP diastolic 39–61; TEMP 97.2–98.5
[~2022-03-05] VITALS: Ht 182.9 cm; Wt 133.8 kg
== END 2022-03-05 23:55 | disposition home or self-care (01) ==
LOC: INF 07:44
PROVIDERS: ATTEND Internal Medicine
PROC: 30233N1 Transfusion of Nonautologous Red Blood Cells into Peripheral Vein, Percutaneous Approach (ICD-10-PCS; principal; 2022-03-05)
DX: D64.9 Anemia, unspecified (principal)
CPT/HCPCS: 36430; 86850; 86900; 86901; 86922; P9016

== ENCOUNTER 2022-03-06 09:29 | Outpatient (CLI) | payer OTHER ==
[2022-03-06 10:01] LABS: PLATELET COUNT 177 K/uL (142-355)
== END 2022-03-06 18:56 | disposition home or self-care (01) ==
LOC: LABW 09:29
PROVIDERS: ATTEND Internal Medicine
DX: D64.9 Anemia, unspecified (principal)
CPT/HCPCS: 36415; 85027; 85044

== ENCOUNTER 2022-03-17 09:11 | Outpatient (CLI) | payer OTHER ==
[2022-03-17 09:34] LABS: PLATELET COUNT 163 K/uL (142-355)
== END 2022-03-17 19:35 | disposition home or self-care (01) ==
LOC: LABW 09:11
PROVIDERS: ATTEND Internal Medicine
DX: D64.89 Other specified anemias (principal)
CPT/HCPCS: 36415; 85027; 85044

== ENCOUNTER 2022-03-18 07:49 | Outpatient (CLI) | payer OTHER ==
[~2022-03-18] VITALS: Ht 182.9 cm; Wt 131.1 kg
[2022-03-18] VITALS (7 sets, daily range): BP systolic 115–140; BP diastolic 45–58; TEMP 97.4–98.2
== END 2022-03-18 20:56 | disposition home or self-care (01) ==
LOC: INF 07:49
PROVIDERS: ATTEND Internal Medicine
PROC: 30233N1 Transfusion of Nonautologous Red Blood Cells into Peripheral Vein, Percutaneous Approach (ICD-10-PCS; principal; 2022-03-18)
DX: D64.9 Anemia, unspecified (principal)
CPT/HCPCS: 36430; 86850; 86900; 86901; 86922; P9016

== ENCOUNTER 2022-03-19 08:09 | Outpatient (CLI) | payer OTHER ==
[2022-03-19 08:27] LABS: PLATELET COUNT 145 K/uL (142-355)
== END 2022-03-19 19:34 | disposition home or self-care (01) ==
LOC: LABW 08:09
PROVIDERS: ATTEND Internal Medicine
DX: D64.89 Other specified anemias (principal)
CPT/HCPCS: 36415; 85027; 85044

== ENCOUNTER 2022-03-20 09:29 | Outpatient (CLI) | payer OTHER | END 2022-03-20 19:02 | disposition home or self-care (01) | LOC: LABW 09:29 | PROVIDERS: ATTEND Internal Medicine | DX: R30.0 Dysuria (principal) | CPT/HCPCS: 81000; 87077; 87086; 87088; 87186 ==

== ENCOUNTER 2022-03-31 09:06 | Outpatient (CLI) | payer OTHER ==
[2022-03-31 09:25] LABS: PLATELET COUNT 196 K/uL (142-355)
== END 2022-03-31 20:20 | disposition home or self-care (01) ==
LOC: LABW 09:06
PROVIDERS: ATTEND Internal Medicine
DX: D64.89 Other specified anemias (principal)
CPT/HCPCS: 36415; 85027; 85044

== ENCOUNTER 2022-04-07 09:12 | Outpatient (CLI) | payer OTHER ==
[2022-04-07 09:29] LABS: PLATELET COUNT 198 K/uL (142-355)
== END 2022-04-07 18:55 | disposition home or self-care (01) ==
LOC: LABW 09:12
PROVIDERS: ATTEND Internal Medicine
DX: D64.89 Other specified anemias (principal)
CPT/HCPCS: 36415; 85027; 85044

== ENCOUNTER 2022-04-09 07:27 | Outpatient (CLI) | payer OTHER ==
[2022-04-09] VITALS (7 sets, daily range): BP systolic 128–145; BP diastolic 45–60; TEMP 97.4–98.1
[~2022-04-09] VITALS: Ht 180.3 cm; Wt 80.7 kg
== END 2022-04-09 20:12 | disposition home or self-care (01) ==
LOC: INF 07:27
PROVIDERS: ATTEND Internal Medicine
PROC: 30233N1 Transfusion of Nonautologous Red Blood Cells into Peripheral Vein, Percutaneous Approach (ICD-10-PCS; principal; 2022-04-09)
DX: D64.89 Other specified anemias (principal)
CPT/HCPCS: 36415; 36430; 86850; 86900; 86901; 86922; P9016

== ENCOUNTER 2022-04-10 08:47 | Outpatient (CLI) | payer OTHER ==
[2022-04-10 09:13] LABS: PLATELET COUNT 167 K/uL (142-355)
== END 2022-04-10 21:33 | disposition home or self-care (01) ==
LOC: LABW 08:47
PROVIDERS: ATTEND Nurse Practitioner Family
DX: D64.89 Other specified anemias (principal)
CPT/HCPCS: 36415; 85027; 85044

== ENCOUNTER 2022-04-21 09:43 | Outpatient (CLI) | payer OTHER ==
[2022-04-21 09:58] LABS: PLATELET COUNT 186 K/uL (142-355)
== END 2022-04-21 19:06 | disposition home or self-care (01) ==
LOC: LABW 09:43
PROVIDERS: ATTEND Internal Medicine
DX: D64.89 Other specified anemias (principal)
CPT/HCPCS: 36415; 85027; 85044

== ENCOUNTER 2022-04-23 09:37 | Observation (INO) | payer OTHER ==
[~2022-04-23] VITALS: Ht 177.8 cm; Wt 124.8 kg
[2022-04-23] VITALS (11 sets, daily range): BP systolic 119–144; BP diastolic 40–67; TEMP 97.6–98.5; Ht 177.8 cm; Wt 124.8 kg
[2022-04-23 10:23] LABS: PLATELET COUNT 171 K/uL (142-355)
[2022-04-23 10:30] LABS: POTASSIUM 5.4 mmol/L (3.6-5.2)
[2022-04-23] MEDS ORDERED: LUTEIN40 MG PO (15:47)
[2022-04-23] MEDS ORDERED: VITAMIN B-121000 MC2 PO (15:48)
[2022-04-23] MEDS ORDERED: MULTIVITAMI1 PO (15:49)
[2022-04-23] MEDS ORDERED: VITAMIN D50000 UNIT PO (15:55)
[2022-04-24] VITALS (10 sets, daily range): BP systolic 97–137; BP diastolic 39–65; TEMP 97.2–98.3
[2022-04-24 05:57] LABS: PLATELET COUNT 177 K/uL (142-355)
[2022-04-24 06:30] LABS: POTASSIUM 5.1 mmol/L (3.6-5.2)
[2022-04-25 04:03] VITALS: BP 125/51; TEMP 98.2
[2022-04-25 08:00] VITALS: BP 122/60; TEMP 97.5
[2022-04-25] MEDS ORDERED: CEFD300C2 PO (09:48)
[2022-04-25] MEDS ORDERED: PRED10TA27 PO (09:51)
== END 2022-04-25 11:29 | disposition home or self-care (01) ==
LOC: ED 09:37 → MED/SURG 12:48
PROVIDERS: ADMIT Emergency Medicine Emergency Medical Services; ATTEND Internal Medicine
DX: U07.1 COVID-19 (principal); J12.82 Pneumonia due to coronavirus disease 2019; D46.Z Other myelodysplastic syndromes; I25.10 Atherosclerotic heart disease of native coronary artery without angina pectoris; I48.91 Unspecified atrial fibrillation; D63.8 Anemia in other chronic diseases classified elsewhere; I25.2 Old myocardial infarction; E11.22 Type 2 diabetes mellitus with diabetic chronic kidney disease; E11.65 Type 2 diabetes mellitus with hyperglycemia; I13.0 Hypertensive heart and chronic kidney disease with heart failure and stage 1 through stage 4 chronic kidney disease, or unspecified chronic kidney disease; N18.30 Chronic kidney disease, stage 3 unspecified; I50.9 Heart failure, unspecified
CPT/HCPCS: 36415; 36430; 80053; 81002; 82948; 83735; 83880; 84484; 85027; 85610; 86850; 86900; 86901; 86922; 87040; 87077; 87185; 87186; 87205; 87635; 93005; 94664; 94760; 96365; 96367; 96372; 96375; 96376; 99220; 99284; G0378; J0248; J0696; J1650; J1940; P9016; U0003

== ENCOUNTER 2022-05-12 08:54 | Outpatient (CLI) | payer OTHER ==
[~2022-05-12 08:54] MED LIST changes: +CEFD300C2 PO; +LUTEIN40 MG PO; +MULTIVITAMI1 PO; +PRED10TA27 PO; +VITAMIN B-121000 MC2 PO; +VITAMIN D50000 UNIT PO
[2022-05-12 09:11] LABS: PLATELET COUNT 163 K/uL (142-355)
== END 2022-05-12 19:22 | disposition home or self-care (01) ==
LOC: LABW 08:54
PROVIDERS: ATTEND Internal Medicine
DX: D64.89 Other specified anemias (principal)
CPT/HCPCS: 36415; 85027; 85044

== ENCOUNTER 2022-05-13 07:45 | Outpatient (CLI) | payer OTHER ==
[~2022-05-13] VITALS: Ht 182.9 cm; Wt 124.7 kg
[2022-05-13] VITALS (9 sets, daily range): BP systolic 127–139; BP diastolic 54–61; TEMP 98–98.5
[2022-05-14 07:35] VITALS: BP 132/54; TEMP 97.7
[2022-05-14 08:12] VITALS: BP 113/46; TEMP 97.9
[2022-05-14 09:15] VITALS: BP 129/64; TEMP 98.6
[2022-05-14 10:15] VITALS: BP 119/52; TEMP 98.1
[2022-05-14 11:25] VITALS: BP 121/60; TEMP 98.1
== END 2022-05-14 14:00 | disposition home or self-care (01) ==
LOC: INF 07:45
PROVIDERS: ATTEND Internal Medicine
PROC: 30233N1 Transfusion of Nonautologous Red Blood Cells into Peripheral Vein, Percutaneous Approach (ICD-10-PCS; principal; 2022-05-13)
DX: D64.9 Anemia, unspecified (principal)
CPT/HCPCS: 36415; 36430; 86850; 86900; 86901; 86922; P9016

== ENCOUNTER 2022-05-15 08:45 | Outpatient (CLI) | payer OTHER ==
[2022-05-15 09:09] LABS: PLATELET COUNT 143 K/uL (142-355)
== END 2022-05-15 19:37 | disposition home or self-care (01) ==
LOC: LABW 08:45
PROVIDERS: ATTEND Internal Medicine
DX: D64.89 Other specified anemias (principal)
CPT/HCPCS: 36415; 85027

== ENCOUNTER 2022-05-26 09:03 | Outpatient (CLI) | payer OTHER ==
[2022-05-26 09:55] LABS: PLATELET COUNT 157 K/uL (142-355)
== END 2022-05-26 20:15 | disposition home or self-care (01) ==
LOC: LABW 09:03
PROVIDERS: ATTEND Internal Medicine
DX: D64.89 Other specified anemias (principal)
CPT/HCPCS: 36415; 85027; 85044

== ENCOUNTER 2022-06-09 08:52 | Outpatient (CLI) | payer OTHER ==
[2022-06-09 09:05] LABS: PLATELET COUNT 182 K/uL (142-355)
== END 2022-06-09 19:49 | disposition home or self-care (01) ==
LOC: LABW 08:52
PROVIDERS: ATTEND Internal Medicine
DX: D64.89 Other specified anemias (principal)
CPT/HCPCS: 36415; 85027

== ENCOUNTER 2022-06-10 07:39 | Outpatient (CLI) | payer OTHER ==
[2022-06-10] VITALS (7 sets, daily range): BP systolic 120–140; BP diastolic 48–62; TEMP 98.1–98.6
[~2022-06-10] VITALS: Ht 182.9 cm; Wt 106.6 kg
[2022-06-11 08:25] VITALS: BP 140/56; TEMP 98.3
[2022-06-11 09:53] VITALS: BP 120/54; TEMP 98.4
[2022-06-11 10:35] VITALS: BP 129/45; TEMP 98.1
[2022-06-11 11:53] VITALS: BP 132/52; TEMP 97.9
[2022-06-11 12:38] VITALS: BP 137/68; TEMP 98.2
[2022-06-11 13:28] VITALS: BP 136/67; TEMP 98.2
== END 2022-06-11 15:00 | disposition home or self-care (01) ==
LOC: INF 07:39
PROVIDERS: ATTEND Internal Medicine
PROC: 30233N1 Transfusion of Nonautologous Red Blood Cells into Peripheral Vein, Percutaneous Approach (ICD-10-PCS; principal; 2022-06-10)
DX: D64.9 Anemia, unspecified (principal)
CPT/HCPCS: 36415; 36430; 86850; 86900; 86901; 86922; P9016

== ENCOUNTER 2022-06-12 08:27 | Outpatient (CLI) | payer OTHER ==
[2022-06-12 08:46] LABS: PLATELET COUNT 156 K/uL (142-355)
== END 2022-06-12 22:24 | disposition home or self-care (01) ==
LOC: LABW 08:27
PROVIDERS: ATTEND Internal Medicine
DX: D64.89 Other specified anemias (principal)
CPT/HCPCS: 36415; 85027

== ENCOUNTER 2022-06-23 08:36 | Outpatient (CLI) | payer OTHER ==
[2022-06-23 08:49] LABS: PLATELET COUNT 128 K/uL (142-355)
== END 2022-06-23 19:43 | disposition home or self-care (01) ==
LOC: LABW 08:36
PROVIDERS: ATTEND Internal Medicine
DX: D64.89 Other specified anemias (principal)
CPT/HCPCS: 36415; 85027

== ENCOUNTER 2022-06-24 07:35 | Outpatient (CLI) | payer OTHER ==
[2022-06-24] VITALS (7 sets, daily range): BP systolic 121–145; BP diastolic 42–55; TEMP 98–98.4
[~2022-06-24] VITALS: Ht 188 cm; Wt 106.6 kg
== END 2022-06-24 20:18 | disposition home or self-care (01) ==
LOC: INF 07:35
PROVIDERS: ATTEND Internal Medicine
PROC: 30233N1 Transfusion of Nonautologous Red Blood Cells into Peripheral Vein, Percutaneous Approach (ICD-10-PCS; principal; 2022-06-24)
DX: D64.9 Anemia, unspecified (principal)
CPT/HCPCS: 36430; 86850; 86900; 86901; 86922; P9016

== ENCOUNTER 2022-06-25 09:05 | Outpatient (CLI) | payer OTHER ==
[2022-06-25 09:23] LABS: PLATELET COUNT 137 K/uL (142-355)
== END 2022-06-25 19:26 | disposition home or self-care (01) ==
LOC: CT 09:05 → LABW 09:05
PROVIDERS: ATTEND Internal Medicine
DX: D64.89 Other specified anemias (principal); H91.22 Sudden idiopathic hearing loss, left ear
CPT/HCPCS: 36415; 85027

== ENCOUNTER 2022-07-07 09:02 | Outpatient (CLI) | payer OTHER ==
[2022-07-07 09:40] LABS: PLATELET COUNT 147 K/uL (142-355)
== END 2022-07-07 21:25 | disposition home or self-care (01) ==
LOC: LABW 09:02
PROVIDERS: ATTEND Internal Medicine
DX: D64.89 Other specified anemias (principal)
CPT/HCPCS: 36415; 85027

== ENCOUNTER 2022-07-08 07:55 | Outpatient (CLI) | payer OTHER ==
[~2022-07-08] VITALS: Ht 188 cm; Wt 106.6 kg
[2022-07-08] VITALS (8 sets, daily range): BP systolic 104–154; BP diastolic 46–62; TEMP 97.6–98.4
== END 2022-07-08 19:04 | disposition home or self-care (01) ==
LOC: INF 07:55
PROVIDERS: ATTEND Internal Medicine
PROC: 30233N1 Transfusion of Nonautologous Red Blood Cells into Peripheral Vein, Percutaneous Approach (ICD-10-PCS; principal; 2022-07-08)
DX: D64.9 Anemia, unspecified (principal)
CPT/HCPCS: 36415; 86850; 86900; 86901; 86922; 96365; P9016

== ENCOUNTER 2022-07-09 08:45 | Outpatient (CLI) | payer OTHER ==
[2022-07-09 09:11] LABS: PLATELET COUNT 140 K/uL (142-355)
== END 2022-07-09 22:48 | disposition home or self-care (01) ==
LOC: LABW 08:45
PROVIDERS: ATTEND Internal Medicine
DX: D64.89 Other specified anemias (principal)
CPT/HCPCS: 36415; 85027

== ENCOUNTER 2022-07-21 08:45 | Outpatient (CLI) | payer OTHER ==
[2022-07-21 09:19] LABS: PLATELET COUNT 138 K/uL (142-355)
== END 2022-07-21 20:07 | disposition home or self-care (01) ==
LOC: LABW 08:45
PROVIDERS: ATTEND Internal Medicine
DX: D64.89 Other specified anemias (principal)
CPT/HCPCS: 36415; 85027

== ENCOUNTER 2022-07-28 08:24 | Outpatient (CLI) | payer OTHER ==
[2022-07-28 08:36] LABS: PLATELET COUNT 168 K/uL (142-355)
== END 2022-07-28 18:59 | disposition home or self-care (01) ==
LOC: LABW 08:24
PROVIDERS: ATTEND Internal Medicine
DX: D64.89 Other specified anemias (principal)
CPT/HCPCS: 36415; 85027

== ENCOUNTER 2022-08-04 08:41 | Outpatient (CLI) | payer OTHER ==
[2022-08-04 09:00] LABS: PLATELET COUNT 166 K/uL (142-355)
== END 2022-08-04 21:05 | disposition home or self-care (01) ==
LOC: LABW 08:41
PROVIDERS: ATTEND Internal Medicine
DX: D64.89 Other specified anemias (principal)
CPT/HCPCS: 36415; 85027

== ENCOUNTER 2022-08-06 08:14 | Outpatient (CLI) | payer OTHER ==
[2022-08-06] VITALS (10 sets, daily range): BP systolic 117–136; BP diastolic 40–61; TEMP 97.9–98.6
[~2022-08-06] VITALS: Ht 177.8 cm; Wt 131.5 kg
== END 2022-08-06 19:07 | disposition home or self-care (01) ==
LOC: INF 08:14
PROVIDERS: ATTEND Internal Medicine
DX: D64.89 Other specified anemias (principal)
CPT/HCPCS: 36415; 36430; 86850; 86900; 86901; 86922; P9016

== ENCOUNTER 2022-08-07 08:34 | Outpatient (CLI) | payer OTHER ==
[2022-08-07 08:57] LABS: PLATELET COUNT 158 K/uL (142-355)
== END 2022-08-07 17:00 | disposition home or self-care (01) ==
LOC: LABW 08:34
PROVIDERS: ATTEND Internal Medicine
DX: D64.89 Other specified anemias (principal)
CPT/HCPCS: 36415; 85027

== ENCOUNTER 2022-08-18 08:29 | Outpatient (CLI) | payer OTHER ==
[2022-08-18 08:41] LABS: PLATELET COUNT 164 K/uL (142-355)
== END 2022-08-18 19:37 | disposition home or self-care (01) ==
LOC: LABW 08:29
PROVIDERS: ATTEND Internal Medicine
DX: D64.89 Other specified anemias (principal)
CPT/HCPCS: 36415; 85027

== ENCOUNTER 2022-08-19 08:05 | Outpatient (CLI) | payer OTHER ==
[~2022-08-19] VITALS: Ht 185.4 cm; Wt 123.4 kg
[2022-08-19 08:16] VITALS: BP 133/63; TEMP 98.3
[2022-08-19 09:51] VITALS: BP 118/52; TEMP 98.2
[2022-08-19 10:51] VITALS: BP 133/50; TEMP 98.1
[2022-08-19 11:56] VITALS: BP 118/46; TEMP 98.2
[2022-08-19 12:51] VITALS: BP 128/54; TEMP 97.7
[2022-08-19 14:40] VITALS: BP 133/52; TEMP 98.2
== END 2022-08-19 19:16 | disposition home or self-care (01) ==
LOC: INF 08:05
PROVIDERS: ATTEND Internal Medicine
DX: D64.89 Other specified anemias (principal)
CPT/HCPCS: 36430; 86850; 86900; 86901; 86922; P9016

== ENCOUNTER 2022-08-20 08:09 | Outpatient (CLI) | payer OTHER ==
[2022-08-20 08:21] LABS: PLATELET COUNT 147 K/uL (142-355)
== END 2022-08-20 19:00 | disposition home or self-care (01) ==
LOC: LABW 08:09
PROVIDERS: ATTEND Internal Medicine
DX: D64.89 Other specified anemias (principal)
CPT/HCPCS: 36415; 85027

== ENCOUNTER 2022-09-01 08:18 | Outpatient (CLI) | payer OTHER ==
[2022-09-01 08:35] LABS: PLATELET COUNT 154 K/uL (142-355)
== END 2022-09-01 20:08 | disposition home or self-care (01) ==
LOC: LABW 08:18
PROVIDERS: ATTEND Internal Medicine
DX: D64.89 Other specified anemias (principal)
CPT/HCPCS: 36415; 85027

== ENCOUNTER 2022-09-03 08:22 | Outpatient (CLI) | payer OTHER ==
[2022-09-03 08:53] LABS: PLATELET COUNT 130 K/uL (142-355)
== END 2022-09-03 20:34 ==
LOC: LABW 08:22
PROVIDERS: ATTEND Internal Medicine
DX: D64.89 Other specified anemias (principal)
CPT/HCPCS: 36415; 85027

== ENCOUNTER 2022-09-15 08:27 | Outpatient (CLI) | payer OTHER ==
[2022-09-15 08:42] LABS: PLATELET COUNT 172 K/uL (142-355)
== END 2022-09-15 22:46 ==
LOC: LABW 08:27
PROVIDERS: ATTEND Internal Medicine
DX: D64.89 Other specified anemias (principal)
CPT/HCPCS: 36415; 85027

== ENCOUNTER 2022-09-17 08:03 | Outpatient (CLI) | payer OTHER ==
[2022-09-17] VITALS (10 sets, daily range): BP systolic 110–136; BP diastolic 43–73; TEMP 97.2–98.6
[~2022-09-17] VITALS: Ht 177.8 cm; Wt 131.5 kg
== END 2022-09-17 18:50 ==
LOC: INF 08:03
PROVIDERS: ATTEND Internal Medicine
DX: D64.89 Other specified anemias (principal)
CPT/HCPCS: 36415; 36430; 85014; 85018; 86850; 86900; 86901; 86922; P9016

== ENCOUNTER 2022-09-18 08:59 | Outpatient (CLI) | payer OTHER ==
[2022-09-18 09:09] LABS: PLATELET COUNT 157 K/uL (142-355)
== END 2022-09-18 19:10 | disposition home or self-care (01) ==
LOC: LABW 08:59
PROVIDERS: ATTEND Internal Medicine
DX: D64.89 Other specified anemias (principal)
CPT/HCPCS: 36415; 85027

== ENCOUNTER 2022-09-29 08:35 | Outpatient (CLI) | payer OTHER ==
[2022-09-29 08:54] LABS: PLATELET COUNT 136 K/uL (142-355)
== END 2022-09-29 18:55 | disposition home or self-care (01) ==
LOC: LABW 08:35
PROVIDERS: ATTEND Internal Medicine
DX: D64.89 Other specified anemias (principal)
CPT/HCPCS: 36415; 85027

== ENCOUNTER 2022-10-06 08:13 | Outpatient (CLI) | payer OTHER ==
[2022-10-06 08:30] LABS: PLATELET COUNT 144 K/uL (142-355)
== END 2022-10-06 18:52 | disposition home or self-care (01) ==
LOC: LABW 08:13
PROVIDERS: ATTEND Internal Medicine
DX: D64.89 Other specified anemias (principal)
CPT/HCPCS: 36415; 85027

== ENCOUNTER → 2022-10-08 | Outpatient (CLI) | payer OTHER ==
[2022-10-08] VITALS (9 sets, daily range): BP systolic 125–140; BP diastolic 41–69; TEMP 97.6–98.7
[~2022-10-08] VITALS: Ht 177.8 cm; Wt 131.5 kg
[2022-10-09 08:10] VITALS: BP 143/55; TEMP 98.3
[2022-10-09 09:12] VITALS: BP 130/52; TEMP 98.3
[2022-10-09 10:12] VITALS: BP 125/49; TEMP 98.3
[2022-10-09 12:00] VITALS: BP 156/58; TEMP 98.4
== END ==
LOC: INF 07:52
PROVIDERS: ATTEND Internal Medicine
DX: D64.89 Other specified anemias (principal)
CPT/HCPCS: 36430; 85014; 85018; 86850; 86900; 86901; 86922; P9016

== ENCOUNTER 2022-10-10 08:41 | Outpatient (CLI) | payer OTHER ==
[2022-10-10 09:13] LABS: PLATELET COUNT 149 K/uL (142-355)
== END 2022-10-10 20:49 | disposition home or self-care (01) ==
LOC: LABW 08:41
PROVIDERS: ATTEND Internal Medicine
DX: D64.89 Other specified anemias (principal)
CPT/HCPCS: 36415; 85027

== ENCOUNTER 2022-11-03 08:07 | Outpatient (CLI) | payer OTHER ==
[2022-11-03 08:19] LABS: PLATELET COUNT 195 K/uL (142-355)
== END 2022-11-03 19:09 | disposition home or self-care (01) ==
LOC: LABW 08:07
PROVIDERS: ATTEND Internal Medicine
DX: D64.89 Other specified anemias (principal)
CPT/HCPCS: 36415; 85027

== ENCOUNTER 2022-11-04 07:58 | Outpatient (CLI) | payer OTHER ==
[~2022-11-04] VITALS: Ht 177.8 cm; Wt 131.5 kg
[2022-11-04] VITALS (10 sets, daily range): BP systolic 78–149; BP diastolic 44–89; TEMP 97.4–98.6
== END 2022-11-04 19:12 | disposition home or self-care (01) ==
LOC: INF 07:58
PROVIDERS: ATTEND Internal Medicine Endocrinology, Diabetes & Metabolism
DX: D64.89 Other specified anemias (principal)
CPT/HCPCS: 36430; 86850; 86900; 86901; 86922; P9016

== ENCOUNTER 2022-11-05 08:09 | Outpatient (CLI) | payer OTHER ==
[2022-11-05 08:27] LABS: PLATELET COUNT 155 K/uL (142-355)
== END 2022-11-05 19:55 | disposition home or self-care (01) ==
LOC: LABW 08:09
PROVIDERS: ATTEND Internal Medicine
DX: D64.89 Other specified anemias (principal)
CPT/HCPCS: 36415; 85027

== ENCOUNTER 2022-11-17 08:06 | Outpatient (CLI) | payer OTHER ==
[2022-11-17 08:20] LABS: PLATELET COUNT 140 K/uL (142-355)
== END 2022-11-17 21:51 | disposition home or self-care (01) ==
LOC: LABW 08:06
PROVIDERS: ATTEND Internal Medicine
DX: D64.89 Other specified anemias (principal)
CPT/HCPCS: 36415; 85027

== ENCOUNTER 2022-11-18 08:01 | Outpatient (CLI) | payer OTHER ==
[2022-11-18] VITALS (9 sets, daily range): BP systolic 114–149; BP diastolic 43–81; TEMP 97.9–98.8
[~2022-11-18] VITALS: Ht 165.1 cm; Wt 68.0 kg
== END 2022-11-18 20:08 | disposition home or self-care (01) ==
LOC: INF 08:01
PROVIDERS: ATTEND Internal Medicine
DX: D64.89 Other specified anemias (principal)
CPT/HCPCS: 36430; 86850; 86900; 86901; 86922; P9016

== ENCOUNTER 2022-11-19 08:21 | Outpatient (CLI) | payer OTHER ==
[2022-11-19 08:48] LABS: PLATELET COUNT 145 K/uL (142-355)
== END 2022-11-19 19:04 | disposition home or self-care (01) ==
LOC: LABW 08:21
PROVIDERS: ATTEND Internal Medicine
DX: D64.89 Other specified anemias (principal)
CPT/HCPCS: 36415; 85027

== ENCOUNTER 2022-12-01 08:01 | Outpatient (CLI) | payer OTHER ==
[2022-12-01 08:40] LABS: PLATELET COUNT 150 K/uL (142-355)
== END 2022-12-01 19:29 | disposition home or self-care (01) ==
LOC: LABW 08:01
PROVIDERS: ATTEND Internal Medicine
DX: D64.89 Other specified anemias (principal)
CPT/HCPCS: 36415; 85027

== ENCOUNTER 2022-12-02 08:00 | Outpatient (CLI) | payer OTHER ==
[~2022-12-02] VITALS: Ht 165.1 cm; Wt 68.0 kg
[2022-12-02] VITALS (8 sets, daily range): BP systolic 117–139; BP diastolic 47–85; TEMP 97.8–98.6
== END 2022-12-02 18:52 | disposition home or self-care (01) ==
LOC: INF 08:00
PROVIDERS: ATTEND Internal Medicine
DX: D64.89 Other specified anemias (principal)
CPT/HCPCS: 36415; 36430; 86850; 86900; 86901; 86922; P9016

== ENCOUNTER 2022-12-03 08:06 | Outpatient (CLI) | payer OTHER ==
[2022-12-03 08:30] LABS: PLATELET COUNT 128 K/uL (142-355)
== END 2022-12-03 18:55 | disposition home or self-care (01) ==
LOC: LABW 08:06
PROVIDERS: ATTEND Internal Medicine
DX: D64.89 Other specified anemias (principal)
CPT/HCPCS: 36415; 85027

== ENCOUNTER 2022-12-15 08:17 | Outpatient (CLI) | payer OTHER ==
[2022-12-15 08:38] LABS: PLATELET COUNT 161 K/uL (142-355)
== END 2022-12-15 23:59 | disposition home or self-care (01) ==
LOC: LABW 08:17
PROVIDERS: ATTEND Internal Medicine
DX: D64.89 Other specified anemias (principal)
CPT/HCPCS: 36415; 85027

== ENCOUNTER 2022-12-16 08:07 | Outpatient (CLI) | payer OTHER ==
[2022-12-16] VITALS (9 sets, daily range): BP systolic 117–139; BP diastolic 40–68; TEMP 97.5–98.5
[~2022-12-16] VITALS: Ht 182.9 cm; Wt 88.5 kg
== END 2022-12-16 19:02 | disposition home or self-care (01) ==
LOC: INF 08:07
PROVIDERS: ATTEND Internal Medicine
DX: D64.89 Other specified anemias (principal)
CPT/HCPCS: 36430; 86850; 86900; 86901; 86922; P9016

== ENCOUNTER 2022-12-18 08:10 | Outpatient (CLI) | payer OTHER ==
[2022-12-18 08:50] LABS: PLATELET COUNT 140 K/uL (142-355)
== END 2022-12-18 20:42 | disposition home or self-care (01) ==
LOC: LABW 08:10
PROVIDERS: ATTEND Internal Medicine
DX: D64.89 Other specified anemias (principal)
CPT/HCPCS: 36415; 85027

== ENCOUNTER 2022-12-27 18:03 | Emergency (ER) | payer OTHER ==
[~2022-12-27] VITALS: Ht 182.9 cm; Wt 136.1 kg
[2022-12-27 18:03] VITALS: BP 135/35; TEMP 98.8
[2022-12-27 20:12] LABS: PLATELET COUNT 120 K/uL (142-355)
[2022-12-27 20:16] LABS: POTASSIUM 5.4 mmol/L (3.6-5.2)
== END 2022-12-27 23:08 | disposition short-term general hospital (02) ==
LOC: ED 18:03
PROVIDERS: Family Medicine
DX: S72.112A Displaced fracture of greater trochanter of left femur, initial encounter for closed fracture (principal); W01.0XXA Fall on same level from slipping, tripping and stumbling without subsequent striking against object, initial encounter; Y93.89 Activity, other specified; Y92.009 Unspecified place in unspecified non-institutional (private) residence as the place of occurrence of the external cause; Y99.9 Unspecified external cause status; I12.9 Hypertensive chronic kidney disease with stage 1 through stage 4 chronic kidney disease, or unspecified chronic kidney disease; E11.22 Type 2 diabetes mellitus with diabetic chronic kidney disease; N18.9 Chronic kidney disease, unspecified; D63.1 Anemia in chronic kidney disease; I25.10 Atherosclerotic heart disease of native coronary artery without angina pectoris; Z95.5 Presence of coronary angioplasty implant and graft; Z20.822 Contact with and (suspected) exposure to COVID-19
CPT/HCPCS: 36415; 80053; 81002; 85027; 86850; 86900; 86901; 87635; 96360; 96372; 99284; J1885; J2360; U0003